=== PATIENT | male | born 1995 | race Hispanic/Latino ===

== ENCOUNTER 2018-02-17 20:26 | Emergency (ER) | payer SELFPAY ==
--- NOTE | 2018-02-17 22:00 | EDPHYS ---
Physician Documentation [facility] Name: Sudheer Duran Age: 22 yrs Sex: Male : 1995 Arrival Date: 02/17/2018 Time: 20:27 Bed 30 Private MD: ED Physician Chris Duron HPI: 02/17 21:50 This 22 yrs old Male presents to ER via Ambulatory with complaints of Allergic gs Reaction, Hives. 21:50 The patient presents with itching, rash. Onset: The symptoms/episode began/occurred 2 gs day(s) ago. Associated signs and symptoms: Pertinent negatives: abdominal pain, Altered mental status shortness of breath, swelling, Syncope vomiting. Possible causes: The patient has no known obvious cause for the symptoms. At home the patient or guardian has treated the symptoms with Benadryl. Severity of symptoms: At their worst the symptoms were moderate in the emergency department the symptoms are unchanged. The patient has experienced similar episodes in the past, a few times. Historical: - Allergies: 20:43 No Known Allergies; ea - Home Meds: 20:43 None [Active]; ea - PMHx: 20:43 None; ea - PSHx: 20:43 None; ea - Immunization history:: Adult Immunizations up to date. - Social history:: Smoking status: Patient uses tobacco products, denies chronic smoking, but will smoke occasionally. ROS: 21:50 Constitutional: Negative for fever. gs 21:50 All other systems are negative. Exam: 21:50 Head/Face: Normocephalic, atraumatic. Eyes: Pupils equal round and reactive to light, gs extra-ocular motions intact. Lids and lashes normal. Conjunctiva and sclera are non-icteric and not injected. Cornea within normal limits. Periorbital areas with no swelling, redness, or edema. ENT: Nares patent. No nasal discharge, no septal abnormalities noted. Tympanic membranes are normal and external auditory canals are clear. Oropharynx with no redness, swelling, or masses, exudates, or evidence of obstruction, uvula midline. Mucous membranes moist. Neck: Trachea midline, no thyromegaly or masses palpated, and no cervical lymphadenopathy. Supple, full range of motion without nuchal rigidity, or vertebral point tenderness. No Meningismus. Chest/axilla: Normal chest wall appearance and motion. Nontender with no deformity. No lesions are appreciated. Cardiovascular: Regular rate and rhythm with a normal S1 and S2. No gallops, murmurs, or rubs. Normal PMI, no JVD. No pulse deficits. Respiratory: Lungs have equal breath sounds bilaterally, clear to auscultation and percussion. No rales, rhonchi or wheezes noted. No increased work of breathing, no retractions or nasal flaring. Abdomen/GI: Soft, non-tender, with normal bowel sounds. No distension or tympany. No guarding or rebound. No evidence of tenderness throughout. Back: No spinal tenderness. No costovertebral tenderness. Full range of motion. MS/ Extremity: Pulses equal, no cyanosis. Neurovascular intact. Full, normal range of motion. Neuro: Awake and alert, GCS 15, oriented to person, place, time, and situation. Cranial nerves II-XII grossly intact. Motor strength 5/5 in all extremities. Sensory grossly intact. Cerebellar exam normal. Normal gait. 21:50 Constitutional: The patient appears alert, awake. 21:50 Skin: rash a moderate rash is noted, rash can be described as macular, papular, and is diffusely located. Vital Signs: 20:45 BP 106 / 68; Pulse 77; Resp 18; Temp 98(O); Pulse Ox 99% on R/A; Weight 86.18 kg; ea Height 5 ft. 10 in. (177.80 cm); Pain 0/10; 20:45 Body Mass Index 27.26 (86.18 kg, 177.80 cm) ea MDM: 21:43 Patient medically screened. 21:57 Differential diagnosis: contact dermatitis, scabies, hives. Data reviewed: vital signs, nurses notes. Response to treatment: the patient's symptoms have mildly improved after treatment, and as a result, I will discharge patient. Administered Medications: 22:12 Drug: predniSONE 40 mg Route: PO; kb1 22:12 Follow up: Response: Medication administered at discharge. kb1 Disposition: 02/17/18 21:59 Discharged to Home. Impression: Allergic contact dermatitis. - Condition is Stable. - Discharge Instructions: Contact Dermatitis, [id number]. - Prescriptions for Prednisone 20 mg Oral Tablet - take 1 tablet by ORAL route once daily for 5 days; 5 tablet. Zyrtec 10 mg Oral Tablet - take 1 tablet by ORAL route once daily As needed; 20 tablet. Triamcinolone Acetonide 0.1 % Topical Ointment - apply 1 application by TOPICAL route every 12 hours As needed; 1 tube. - Medication Reconciliation Form, Thank You Letter, Antibiotic Education, Prescription Opioid Use form. - Follow up: Private Physician; When: 2 - 3 days. Follow up: Sergio Pillai MD; When: 2 - 3 days; Reason: Re-evaluation by your physician. Signatures: Kylah Bettencourt RN RN ea Chris Duron MD MD Maribel De La Cruz RN RN kb1
--- NOTE | 2018-02-17 22:00 | ER ---
Nurse's Notes [facility] Name: Sudheer Duran Age: 22 yrs Sex: Male : 1995 Arrival Date: 02/17/2018 Time: 20:27 Bed 30 Private MD: Diagnosis: Allergic contact dermatitis Presentation: 02/17 20:40 Presenting complaint: Patient states: Reports that four days ago he used a new body ea wash and started breaking out in hives and a rash. Transition of care: patient was not received from another setting of care. Onset: The symptoms/episode began/occurred 4 day(s) ago. Anaphylaxis evaluation, no signs or symptoms of anaphylaxis were noted. Onset of symptoms was February 17, 2018. Care prior to arrival: Medication(s) given: Benadryl this AM. 20:40 Method Of Arrival: Ambulatory ea 20:40 Acuity: ALEXANDRE 4 ea Triage Assessment: 20:43 General: Appears in no apparent distress. Behavior is calm, cooperative, appropriate ea for age. Pain: Denies pain. Neuro: Level of Consciousness is awake, alert, obeys commands, Oriented to person, place, time. Cardiovascular: Patient's skin is warm and dry. Respiratory: Airway is patent Respiratory effort is even, unlabored, Respiratory pattern is regular, symmetrical. Derm: Rash noted that is itchy, red, on right arm, left arm, right leg and left leg. Historical: - Allergies: 20:43 No Known Allergies; ea - Home Meds: 20:43 None [Active]; ea - PMHx: 20:43 None; ea - PSHx: 20:43 None; ea - Immunization history:: Adult Immunizations up to date. - Social history:: Smoking status: Patient uses tobacco products, denies chronic smoking, but will smoke occasionally. Screenin:46 Abuse screen: Denies threats or abuse. Nutritional screening: No deficits noted. ea Tuberculosis screening: No symptoms or risk factors identified. Fall Risk None identified. Assessment: 22:13 General: Appears in no apparent distress. Behavior is calm, cooperative. Pain: Denies kb1 pain. Neuro: Level of Consciousness is awake, alert, obeys commands, Oriented to person, place, time, situation. Cardiovascular: Patient's skin is warm and dry. Respiratory: Respiratory effort is even, unlabored, Respiratory pattern is regular, symmetrical, Breath sounds are clear. GI: No signs and/or symptoms were reported involving the gastrointestinal system. : No signs and/or symptoms were reported regarding the genitourinary system. Derm: Rash noted that is itchy. Vital Signs: 20:45 BP 106 / 68; Pulse 77; Resp 18; Temp 98(O); Pulse Ox 99% on R/A; Weight 86.18 kg; ea Height 5 ft. 10 in. (177.80 cm); Pain 0/10; 20:45 Body Mass Index 27.26 (86.18 kg, 177.80 cm) ea ED Course: 20:27 Patient arrived in ED. am2 20:42 Triage completed. ea 20:53 Chris Duron MD is Attending Physician. 21:42 Maribel De La Cruz RN is Primary Nurse. kb1 21:59 Sergio Pillai MD is Referral Physician. gs 22:13 Patient has correct armband on for positive identification. Bed in low position. Call kb1 light in reach. 22:13 No provider procedures requiring assistance completed. Patient did not have IV access kb1 during this emergency room visit. Administered Medications: 22:12 Drug: predniSONE 40 mg Route: PO; kb1 22:12 Follow up: Response: Medication administered at discharge. kb1 Outcome: 21:59 Discharge ordered by . 22:14 Discharged to home ambulatory, with friend. kb1 22:14 Condition: stable 22:14 Discharge instructions given to patient, Instructed on discharge instructions, follow up and referral plans. medication usage, Demonstrated understanding of instructions, follow-up care, medications, Prescriptions given X 3. 22:15 Patient left the ED. kb1 Signatures: Guerda Pierce [facility] Kylah Bettencourt RN Chris Fitzpatrick ea, MD MD Maribel De La Cruz RN RN kb1
[2018-02-17 22:23] VITALS: BP 106/68; TEMP 98; O2SAT 99
[2018-02-17] MEDS ORDERED: predniSONE 20 MG TAB ONE (22:30)
== END 2018-02-17 22:15 | disposition home or self-care (01) ==
LOC: ER 20:26
DX: L23.9 Allergic contact dermatitis, unspecified cause
CPT/HCPCS: 99283; J7512

== ENCOUNTER 2018-02-23 19:00 | Emergency (ER) | payer SELFPAY ==
[2018-02-23 19:52] LABS: Absolute Lymphocytes (CBC) 2.8 K/uL (0.7-4.9); Absolute Monocytes 0.6 K/uL (0.1-1.3); Absolute Neutrophil 4.3 K/uL (1.8-8.0); Basophils % 0.8 % (0-1.3); Eosinophils % 10.9 % (0-4.4); MCH 29.7 pg (27.0-35.0); MCV 85.5 fL (80-100); MPV 9.2 fL (7.6-11.3); Monocytes % 6.4 % (3.3-12.3); RBC Red Blood Cell Count 5.38 M/uL (4.33-5.43)
--- NOTE | 2018-02-23 20:01 | ER ---
Nurse's Notes [facility] Name: Sudheer Duran Age: 22 yrs Sex: Male : 1995 Arrival Date: 02/23/2018 Time: 19:04 Bed 15 Private MD: Diagnosis: Allergic contact dermatitis Presentation: 02/23 19:08 Presenting complaint: Patient states: "Was here two weeks ago with an allergic reaction ao and was discharge home, but medications are not working and its getting worst and its hurting more" Rashes noted in abdomen and the back. Patient C/O itching and painful. Transition of care: patient was not received from another setting of care. Onset: The symptoms/episode began/occurred last month. Anaphylaxis evaluation, the patient reports or I have noted the following symptoms which indicate a significant risk of anaphylaxis: urticaria. Onset of symptoms is unknown. Care prior to arrival: None. 19:08 Method Of Arrival: Ambulatory ao 19:08 Acuity: ALEXANDRE 3 ao Triage Assessment: 19:16 General: Appears in no apparent distress. uncomfortable, Behavior is cooperative, ao appropriate for age. Pain: Complains of pain in Skin rashes. Historical: - Allergies: 19:13 No Known Allergies; ao - Home Meds: 19:13 prednisone 2.5 mg Oral tab 1 tab 2 times per day [Active]; triamcinolone acetonide ao 0.025 % Topical oint 2 times per day [Active]; - PMHx: 19:13 None; ao - PSHx: 19:13 None; ao - Immunization history:: Adult Immunizations up to date. - Social history:: Smoking status: Patient/guardian denies using tobacco, Patient uses alcohol, Patient/guardian denies using street drugs. Screenin:16 Abuse screen: Denies threats or abuse. Denies injuries from another. Nutritional bs1 screening: No deficits noted. Tuberculosis screening: No symptoms or risk factors identified. Fall Risk None identified. Assessment: 19:30 General: Appears in no apparent distress. uncomfortable, Behavior is cooperative, bs1 appropriate for age, anxious. 19:30 Pain: Complains of pain in general body Pain does not radiate. Pain currently is 5 out bs1 of 10 on a pain scale. Neuro: Level of Consciousness is awake, alert, obeys commands, Oriented to person, place, time, situation, Appropriate for age Field Liability Generalist are equal bilaterally Moves all extremities. Gait is steady, Speech is normal. Cardiovascular: Denies chest pain, shortness of breath, Heart tones S1 S2 present Capillary refill < 3 seconds Patient's skin is warm and dry. Respiratory: Airway is patent Trachea midline Respiratory effort is even, unlabored, Respiratory pattern is regular, symmetrical, Breath sounds are clear bilaterally. GI: No deficits noted. No signs and/or symptoms were reported involving the gastrointestinal system. Abdomen is flat, Bowel sounds present X 4 quads. : No deficits noted. No signs and/or symptoms were reported regarding the genitourinary system. EENT: No deficits noted. No signs and/or symptoms were reported regarding the EENT system. Derm: Rash noted that is urticaria, on general body, more to right hip and shoulders Reports increased itching, pain that is 5 out of 10 on a pain scale. tingling. Musculoskeletal: Circulation, motion, and sensation intact. Capillary refill < 3 seconds, Range of motion: intact in all extremities. 20:10 Reassessment: Patient appears in no apparent distress at this time. Patient and/or bs1 family updated on plan of care and expected duration. Pain level reassessed. Patient is alert, oriented x 3, equal unlabored respirations, skin warm/dry/pink. Vital Signs: 19:11 BP 102 / 84; Pulse 88; Resp 18; Temp 98.7(O); Pulse Ox 98% on R/A; Weight 86.18 kg; ao Height 5 ft. 10 in. (177.80 cm) (R); Pain 5/10; 20:11 BP 110 / 69; Pulse 78; Resp 16; Pulse Ox 100% on R/A; Pain 4/10; bs1 19:11 Body Mass Index 27.26 (86.18 kg, 177.80 cm) ao ED Course: 19:04 Patient arrived in ED. al2 19:11 Triage completed. ao 19:11 Arm band placed on right wrist. Patient placed in an exam room, on a stretcher, Patient ao notified of wait time. 19:14 Wendy Jacobson FNP-C is PHCP. kb 19:14 Peña Baker MD is Attending Physician. kb 19:36 Lisandra Han RN is Primary Nurse. bs1 20:16 Patient has correct armband on for positive identification. Placed in gown. Bed in low bs1 position. Call light in reach. Side rails up X 1. 20:17 No provider procedures requiring assistance completed. Patient did not have IV access bs1 during this emergency room visit. Administered Medications: No medications were administered Outcome: 20:01 Discharge ordered by . niraj 20:17 Discharged to home ambulatory. bs1 20:17 Condition: stable 20:17 Discharge instructions given to patient, Instructed on discharge instructions, follow up and referral plans. medication usage, Demonstrated understanding of instructions, follow-up care, medications, Prescriptions given X 2. 20:17 Patient left the ED. bs1 Signatures: Wendy Jacobson FNP-C FNP-Shelton Hines, RN RN Lisandra Guidry RN RN bs1 Malika Estrella Corrections: (The following items were deleted from the chart) 19:16 19:08 Presenting complaint: Patient states: "Was here week ago with an allergic ao reaction and was discharge home, but medications are not working and its getting worst and its hurting more" Rashes noted in abdomen and the back. Patient C/O itching and painful ao
--- NOTE | 2018-02-23 20:01 | EDPHYS ---
Physician Documentation [facility] Name: Sudheer Duran Age: 22 yrs Sex: Male : 1995 Arrival Date: 02/23/2018 Time: 19:04 Bed 15 Private MD: ED Physician Peña Baker HPI: 02/23 19:27 This 22 yrs old Male presents to ER via Ambulatory with complaints of Allergic kb Reaction. 19:27 The patient presents with itching, rash, that is diffuse. Onset: The symptoms/episode kb began/occurred 2 week(s) ago. Associated signs and symptoms: Pertinent positives: rash. Possible causes: thought it was due to body wash, but stopped using it and still has rash. At home the patient or guardian has treated the symptoms with Benadryl, steroids. Severity of symptoms: At their worst the symptoms were moderate in the emergency department the symptoms are unchanged. The patient has experienced a previous episode. The patient has been recently seen at the [facility] Emergency Department, this week. Pt states he was seen for an allergic reaction last week and given medication for it. Completed meds, but still has rash. Pain and itching getting worse. . Historical: - Allergies: 19:13 No Known Allergies; ao - Home Meds: 19:13 prednisone 2.5 mg Oral tab 1 tab 2 times per day [Active]; triamcinolone acetonide ao 0.025 % Topical oint 2 times per day [Active]; - PMHx: 19:13 None; ao - PSHx: 19:13 None; ao - Immunization history:: Adult Immunizations up to date. - Social history:: Smoking status: Patient/guardian denies using tobacco, Patient uses alcohol, Patient/guardian denies using street drugs. ROS: 19:24 Constitutional: Negative for fever, chills, and weight loss, Cardiovascular: Negative kb for chest pain, palpitations, and edema, Respiratory: Negative for shortness of breath, cough, wheezing, and pleuritic chest pain, Abdomen/GI: Negative for abdominal pain, nausea, vomiting, diarrhea, and constipation, MS/Extremity: Negative for injury and deformity, Neuro: Negative for headache, weakness, numbness, tingling, and seizure. 19:24 Skin: Positive for rash, diffusely. Exam: 19:24 Constitutional: This is a well developed, well nourished patient who is awake, alert, kb and in no acute distress. Head/Face: Normocephalic, atraumatic. Chest/axilla: Normal chest wall appearance and motion. Nontender with no deformity. No lesions are appreciated. Cardiovascular: Regular rate and rhythm with a normal S1 and S2. No gallops, murmurs, or rubs. Normal PMI, no JVD. No pulse deficits. Respiratory: Lungs have equal breath sounds bilaterally, clear to auscultation and percussion. No rales, rhonchi or wheezes noted. No increased work of breathing, no retractions or nasal flaring. Abdomen/GI: Soft, non-tender, with normal bowel sounds. No distension or tympany. No guarding or rebound. No evidence of tenderness throughout. MS/ Extremity: Pulses equal, no cyanosis. Neurovascular intact. Full, normal range of motion. Neuro: Awake and alert, GCS 15, oriented to person, place, time, and situation. Cranial nerves II-XII grossly intact. Motor strength 5/5 in all extremities. Sensory grossly intact. Cerebellar exam normal. Normal gait. 19:24 Skin: rash can be described as erythematous, macular, papular, and is diffusely located. Vital Signs: 19:11 BP 102 / 84; Pulse 88; Resp 18; Temp 98.7(O); Pulse Ox 98% on R/A; Weight 86.18 kg; ao Height 5 ft. 10 in. (177.80 cm) (R); Pain 5/10; 20:11 BP 110 / 69; Pulse 78; Resp 16; Pulse Ox 100% on R/A; Pain 4/10; bs1 19:11 Body Mass Index 27.26 (86.18 kg, 177.80 cm) ao MDM: 19:14 Patient medically screened. kb 19:24 Data reviewed: vital signs, nurses notes. Data interpreted: Pulse oximetry: on room air kb is 98 %. Interpretation: normal. 20:00 Counseling: I had a detailed discussion with the patient and/or guardian regarding: the kb historical points, exam findings, and any diagnostic results supporting the discharge/admit diagnosis, lab results, the need for outpatient follow up, a hourly sales staff, to return to the emergency department if symptoms worsen or persist or if there are any questions or concerns that arise at home. 02/23 19:21 Order name: CBC with Diff; Complete Time: 19:57 kb Administered Medications: No medications were administered Disposition: 02/24 02:51 Co-signature as Attending Physician, Peña Baker MD. rn Disposition: 02/23/18 20:01 Discharged to Home. Impression: Allergic contact dermatitis. - Condition is Stable. - Discharge Instructions: Rash, [id number]-Laox, Contact Dermatitis, [id number]. - Prescriptions for Pepcid 20 mg Oral Tablet - take 1 tablet by ORAL route every 12 hours for 5 days; 10 tablet. Prednisone 20 mg Oral Tablet - take 3 tablets by ORAL route once daily for 4 days Take 3 tablets by mouth once daily for 4 days, then take 2 tablets by mouth once daily for 4 days, then take 1 tablet by mouth once daily for 4 days.; 24 tablet. - Medication Reconciliation Form, Thank You Letter, Antibiotic Education, Prescription Opioid Use form. - Follow up: Private Physician; When: 2 - 3 days; Reason: Recheck today's complaints, Continuance of care, Re-evaluation by your physician. Follow up: Emergency Department; When: As needed; Reason: Worsening of condition. Signatures: Dispatcher [employer] EDMS Wendy Jacobson, E [employer]CE RETAILER-C E [employer] RETAILER-Ckb Peña Baker MD MD rn Ortiz, Alex RN Lisandra Cornelius RN RN bs1
[2018-02-23 20:23] VITALS: BP 102/84; TEMP 98.7; O2SAT 98
== END 2018-02-23 20:17 | disposition home or self-care (01) ==
LOC: ER 19:00
DX: L23.9 Allergic contact dermatitis, unspecified cause
CPT/HCPCS: 36415; 85025; 99282

== ENCOUNTER 2019-02-07 18:14 | Emergency (ER) | payer SELFPAY ==
--- NOTE | 2019-02-07 19:48 | EDPHYS ---
Physician Documentation [facility] Name: Sudheer Duran Age: 23 yrs Sex: Male : 1995 Arrival Date: 02/07/2019 Time: 18:17 Bed 20 Private MD: ED Physician Peña Baker HPI: 02/07 19:29 This 23 yrs old Male presents to ER via Ambulatory with complaints of Fever. snw 19:29 The patient reports fever, that was measured at 102 degrees Fahrenheit. Onset: The snw symptoms/episode began/occurred suddenly, 2 day(s) ago, and became persistent. Associated signs and symptoms: Pertinent positives: cough, decreased appetite, myalgias, sinus congestion, sore throat. Severity of symptoms: At their worst the symptoms were moderate in the emergency department the symptoms are unchanged. The patient has not experienced similar symptoms in the past. It is unknown whether or not the patient has recently seen a physician. Spouse with similar s/s. Historical: - Allergies: 18:39 No Known Allergies; hb - PMHx: 18:39 None; hb - PSHx: 18:39 None; hb - Immunization history:: Adult Immunizations up to date. - Social history:: Smoking status: Patient/guardian denies using tobacco. - Ebola Screening: : No symptoms or risks identified at this time. ROS: 19:29 Eyes: Negative for injury, pain, redness, and discharge, ENT: Negative for injury, snw pain, and discharge, Neck: Negative for injury, pain, and swelling, Cardiovascular: Negative for chest pain, palpitations, and edema, Respiratory: Negative for shortness of breath, cough, wheezing, and pleuritic chest pain, Abdomen/GI: Negative for abdominal pain, nausea, vomiting, diarrhea, and constipation, Back: Negative for injury and pain, : Negative for injury, bleeding, discharge, and swelling, MS/Extremity: Negative for injury and deformity, Skin: Negative for injury, rash, and discoloration, Neuro: Negative for headache, weakness, numbness, tingling, and seizure. 19:29 Constitutional: Positive for body aches, chills, fatigue, fever, malaise, poor PO intake. Exam: 19:29 Head/Face: Normocephalic, atraumatic. Eyes: Pupils equal round and reactive to light, snw extra-ocular motions intact. Lids and lashes normal. Conjunctiva and sclera are non-icteric and not injected. Cornea within normal limits. Periorbital areas with no swelling, redness, or edema. ENT: Nares patent. No nasal discharge, no septal abnormalities noted. Tympanic membranes are normal and external auditory canals are clear. Oropharynx with no redness, swelling, or masses, exudates, or evidence of obstruction, uvula midline. Mucous membranes moist. Neck: Trachea midline, no thyromegaly or masses palpated, and no cervical lymphadenopathy. Supple, full range of motion without nuchal rigidity, or vertebral point tenderness. No Meningismus. Chest/axilla: Normal chest wall appearance and motion. Nontender with no deformity. No lesions are appreciated. 19:29 Respiratory: Lungs have equal breath sounds bilaterally, clear to auscultation and percussion. No rales, rhonchi or wheezes noted. No increased work of breathing, no retractions or nasal flaring. Abdomen/GI: Soft, non-tender, with normal bowel sounds. No distension or tympany. No guarding or rebound. No evidence of tenderness throughout. Back: No spinal tenderness. No costovertebral tenderness. Full range of motion. Skin: Warm, dry with normal turgor. Normal color with no rashes, no lesions, and no evidence of cellulitis. MS/ Extremity: Pulses equal, no cyanosis. Neurovascular intact. Full, normal range of motion. Neuro: Awake and alert, GCS 15, oriented to person, place, time, and situation. Cranial nerves II-XII grossly intact. Motor strength 5/5 in all extremities. Sensory grossly intact. Cerebellar exam normal. Normal gait. Psych: Awake, alert, with orientation to person, place and time. Behavior, mood, and affect are within normal limits. 19:29 Constitutional: The patient appears in no acute distress, alert, awake, febrile, uncomfortable. 19:29 Cardiovascular: Rate: tachycardic, Rhythm: regular, Heart sounds: normal. Vital Signs: 18:38 BP 148 / 87; Pulse 123; Resp 16; Temp 100.3; Pulse Ox 99% on R/A; Pain 5/10; hb 20:16 BP 142 / 79; Pulse 112; Resp 20; Temp 99.4(O); Pulse Ox 99% on R/A; Pain 0/10; ed1 MDM: 19:03 Patient medically screened. snw 19:51 Data reviewed: vital signs, nurses notes. Data interpreted: Pulse oximetry: on room air snw is 99 %. Interpretation: normal. Counseling: I had a detailed discussion with the patient and/or guardian regarding: the historical points, exam findings, and any diagnostic results supporting the discharge/admit diagnosis, the presence of at least one elevated blood pressure reading (>120/80) during this emergency department visit, the need for outpatient follow up, to return to the emergency department if symptoms worsen or persist or if there are any questions or concerns that arise at home. Special discussion: I have referred the patient to see his PCP for further evaluation of high blood pressure. Based on the history and exam findings, there is no indication for further emergent testing or inpatient evaluation. I discussed with the patient/guardian the need to see the primary care provider for further evaluation of the symptoms. 02/07 18:57 Order name: Flu; Complete Time: 19:46 tw2 Administered Medications: 20:15 Drug: Tamiflu 75 mg Route: PO; ed1 20:15 Follow up: Response: Medication administered at discharge. ed1 20:16 Drug: Zofran 4 mg Route: PO; ed1 20:16 Follow up: Response: Medication administered at discharge. ed1 Disposition: 02/07/19 19:48 Discharged to Home. Impression: Influenza due to identified novel influenza A virus. - Condition is Stable. - Discharge Instructions: Fever, Adult, Hypertension, Influenza, Adult, Cough, Adult, Rehydration, Adult. - Prescriptions for Tamiflu 75 mg Oral Capsule - take 1 capsule by ORAL route every 12 hours for 5 days; 10 capsule. Zofran 4 mg Oral Tablet - take 1 tablet by ORAL route every 12 hours As needed; 20 tablet. - Work release form, Medication Reconciliation Form, Thank You Letter, Antibiotic Education, Prescription Opioid Use form. - Follow up: Private Physician; When: 2 - 3 days; Reason: Recheck today's complaints, Continuance of care, Re-evaluation by your physician. Follow up: Emergency Department; When: As needed; Reason: Worsening of condition. Addendum: 02/11/2019 07:35 Co-signature as Attending Physician, Peña Baker MD. r n Signatures: Dispatcher [employer] [facility] GregoryMarianne velasco, REPRESENTATIVE PERSONAL SERVICE-C REPRESENTATIVE PERSONAL SERVICE-Csnw Peña Baker MD MD rn Vianney Urbano RN RN ed1 Neelam Viveros, JASON RN Corrections: (The following items were deleted from the chart) 02/07 20:17 19:48 02/07/2019 19:48 Discharged to Home. Impression: Influenza due to identified ed1 novel influenza A virus. Condition is Stable. Forms are Medication Reconciliation Form, Thank You Letter, Antibiotic Education, Prescription Opioid Use. Follow up: Private Physician; When: 2 - 3 days; Reason: Recheck today's complaints, Continuance of care, Re-evaluation by your physician. Follow up: Emergency Department; When: As needed; Reason: Worsening of condition. snw
--- NOTE | 2019-02-07 19:48 | ER ---
Nurse's Notes [facility] Name: Sudheer Duran Age: 23 yrs Sex: Male : 1995 Arrival Date: 02/07/2019 Time: 18:17 Bed 20 Private MD: Diagnosis: Influenza due to identified novel influenza A virus Presentation: 02/07 18:39 Presenting complaint: Cough, body aches, fever, and nausea z 3 days. Transition of hb care: patient was not received from another setting of care. Onset of symptoms was February 05, 2019. Risk Assessment: Do you want to hurt yourself or someone else? Patient reports no desire to harm self or others. Care prior to arrival: None. 18:39 Method Of Arrival: Ambulatory hb 18:39 Acuity: ALEXANDRE 4 hb 18:44 Initial Sepsis Screen: Does the patient meet any 2 criteria? HR > 90 bpm. Does the tw2 patient have a suspected source of infection? Yes: Productive cough/pneumonia. Historical: - Allergies: 18:39 No Known Allergies; hb - PMHx: 18:39 None; hb - PSHx: 18:39 None; hb - Immunization history:: Adult Immunizations up to date. - Social history:: Smoking status: Patient/guardian denies using tobacco. - Ebola Screening: : No symptoms or risks identified at this time. Screenin:44 Abuse screen: Denies threats or abuse. Nutritional screening: No deficits noted. tw2 Tuberculosis screening: No symptoms or risk factors identified. Fall Risk None identified. Assessment: 18:46 General: Appears in no apparent distress. Behavior is calm, cooperative, appropriate tw2 for age. Pain: Denies pain. Neuro: Level of Consciousness is awake, alert, obeys commands, Oriented to person, place, time, situation. Cardiovascular: Patient's skin is warm and dry. Respiratory: Reports cough that is Airway is patent Respiratory effort is even, unlabored, Respiratory pattern is regular, symmetrical. GI: No signs and/or symptoms were reported involving the gastrointestinal system. : No signs and/or symptoms were reported regarding the genitourinary system. EENT: Reports nasal congestion nasal discharge. Musculoskeletal: Circulation, motion, and sensation intact. Range of motion: intact in all extremities. 20:16 Reassessment: Patient appears in no apparent distress at this time. Patient and/or ed1 family updated on plan of care and expected duration. Pain level reassessed. Patient is alert, oriented x 3, equal unlabored respirations, skin warm/dry/pink. Patient denies pain at this time. Vital Signs: 18:38 BP 148 / 87; Pulse 123; Resp 16; Temp 100.3; Pulse Ox 99% on R/A; Pain 5/10; hb 20:16 BP 142 / 79; Pulse 112; Resp 20; Temp 99.4(O); Pulse Ox 99% on R/A; Pain 0/10; ed1 ED Course: 18:17 Patient arrived in ED. as 18:22 [facility]C [facility] snw 18:22 Peña Baker MD is Attending Physician. snw 18:40 Triage completed. hb 18:40 Arm band placed on right wrist. hb 18:44 Bed in low position. Call light in reach. Pulse ox on. NIBP on. tw2 19:00 Report given to JASNO Faith. tw2 19:04 Vianney Urbano RN is Primary Nurse. ed1 20:16 No provider procedures requiring assistance completed. Patient did not have IV access ed1 during this emergency room visit. Administered Medications: 20:15 Drug: Tamiflu 75 mg Route: PO; ed1 20:15 Follow up: Response: Medication administered at discharge. ed1 20:16 Drug: Zofran 4 mg Route: PO; ed1 20:16 Follow up: Response: Medication administered at discharge. ed1 Outcome: 19:48 Discharge ordered by . snw 20:16 Discharged to home ambulatory. ed1 20:16 Condition: good 20:16 Discharge instructions given to patient, Instructed on discharge instructions, follow up and referral plans. medication usage, Demonstrated understanding of instructions, follow-up care, medications, Prescriptions given X 2. 20:17 Patient left the ED. ed1 Signatures: Marianne Jenkins FNP-C VICE PRESIDENT BIOSTATISTICS-Anaya Madden as Vianney Urbano, JASON RN ed1 Neelam Viveros RN RN Leida Hugo RN RN tw2
[2019-02-07] MEDS ORDERED: ONDANSETRON 4 MG (ODT) TAB ONE (20:19)
[2019-02-07] MEDS ORDERED: OSELTAMIVIR 75 MG CAP ONE (20:19)
[2019-02-07 20:29] VITALS: O2SAT 99
[2019-02-07 20:30] VITALS: BP 142/79; TEMP 99.4
== END 2019-02-07 20:17 | disposition home or self-care (01) ==
LOC: ER 18:14
DX: J11.1 Influenza due to unidentified influenza virus with other respiratory manifestations (principal)
CPT/HCPCS: 87804; 99283

== ENCOUNTER 2019-05-13 11:12 | Emergency (ER) | payer BC, SELFPAY ==
[2019-05-13 12:03] LABS: Urine Mucus 1+ /HPF (NONE SEEN)
[2019-05-13 12:04] LABS: Urine Bacteria <20 /HPF (NONE SEEN); Urine Culture Reflex Order NOT NEEDED; Urine RBC <5 /HPF (NONE SEEN)
[2019-05-13 12:05] LABS: Urine Specific Gravity 1.025 (1.005-1.030)
[2019-05-13 12:06] LABS: Urine Blood TRACE (NEG); Urine Glucose NEGATIVE (NEG); Urine Protein 1+ (NEG)
[2019-05-13 12:42] LABS: Absolute Lymphocytes (CBC) 1.4 K/uL (0.7-4.9); Absolute Monocytes 0.5 K/uL (0.1-1.3); Absolute Neutrophil 6.9 K/uL (1.8-8.0); Basophils % 0.4 % (0-1.3); Eosinophils % 0.3 % (0-4.4); Hematocrit 53.2 % (39.6-49.0); Lymphocytes % 15.4 % (15.3-44.8); MPV 9.5 fL (7.6-11.3); Monocytes % 5.6 % (3.3-12.3)
[2019-05-13 12:57] LABS: Potassium 3.6 mmol/L (3.5-5.1)
--- NOTE | 2019-05-13 13:05 | RAD REPORT ---
EXAM DESCRIPTION: CTAbdomen Pelvis W Contrast - 05/13/2019 12:57 pm CLINICAL HISTORY: Abdominal pain. ABD PAIN COMPARISON: CT ABD PELVIS W CONTRAST dated 08/31/2009 TECHNIQUE: Biphasic CT imaging of the abdomen and pelvis was performed with 100 ml non-ionic IV cont rast. All CT scans are performed using dose optimization technique as appropriate and may include automated exposure control or mA/KV adjustment according to patient size. FINDINGS: The lung bases are clear. The liver demonstrates diffuse fatty infiltration. The spleen, pancreas, adrenal glands and kidneys a re within normal limits. No bowel obstruction, free air, free fluid or abscess. The appendix is normal. No evidence of signi ficant lymphadenopathy. No suspicious bony findings. IMPRESSION: No acute intra-abdominal or pelvic finding. Diffuse fatty liver.
--- NOTE | 2019-05-13 13:49 | EDPHYS ---
Physician Documentation [facility] Name: Sudheer Duran Age: 24 yrs Sex: Male : 1995 Arrival Date: 05/13/2019 Time: 11:17 Bed 20 Private MD: Unknown, Unknown ED Physician Chris Duron HPI: 05/13 13:05 This 24 yrs old Male presents to ER via Ambulatory with complaints of Possible jr8 Kidney Infection. 13:05 The patient presents with abdominal pain in the lower abdomen. Onset: The jr8 symptoms/episode began/occurred acutely, yesterday. The symptoms do not radiate. Associated signs and symptoms: Pertinent positives: frequency. The symptoms are described as burning, dull. Modifying factors: The symptoms are alleviated by nothing, the symptoms are aggravated by nothing. Severity of pain: At its worst the pain was mild in the emergency department the pain is unchanged. The patient has not experienced similar symptoms in the past. The patient has not recently seen a physician. Stated that he was recently seen and worked up to make sure he did not have any STD's. Stated that everything came back normal. Two days ago started with diarrhea which resolved. Now having lower abdominal burning and discomfort with frequency. Denies burning or pain with urination . Historical: - Allergies: 11:41 No Known Allergies; em - Home Meds: 11:41 None [Active]; em - PMHx: 11:41 None; em - PSHx: 11:41 None; em - Immunization history:: Adult Immunizations up to date. - Social history:: Smoking status: Patient uses tobacco products, denies chronic smoking, but will smoke occasionally. - Ebola Screening: : Patient negative for fever greater than or equal to 101.5 degrees Fahrenheit, and additional compatible Ebola Virus Disease symptoms Patient denies exposure to infectious person Patient denies travel to an Ebola-affected area in the 21 days before illness onset No symptoms or risks identified at this time. ROS: 13:05 Eyes: Negative for injury, pain, redness, and discharge, ENT: Negative for injury, jr8 pain, and discharge, Neck: Negative for injury, pain, and swelling, Cardiovascular: Negative for chest pain, palpitations, and edema, Respiratory: Negative for shortness of breath, cough, wheezing, and pleuritic chest pain, Back: Negative for injury and pain, MS/Extremity: Negative for injury and deformity, Skin: Negative for injury, rash, and discoloration, Neuro: Negative for headache, weakness, numbness, tingling, and seizure. 13:05 Abdomen/GI: Positive for abdominal pain, diarrhea, Negative for nausea and vomiting, constipation, abdominal cramps, abdominal distension, anorexia, dysphagia, hematemesis, black/tarry stool, rectal pain, rectal bleeding, bowel incontinence, flatulence. 13:05 : Positive for urinary frequency, Negative for small amounts, hematuria, flank pain, burning with urination, difficulty urinating, bladder incontinence, foul smelling urine, penile discharge, penile pain, testicular pain Exam: 13:05 Eyes: Pupils equal round and reactive to light, extra-ocular motions intact. Lids and jr8 lashes normal. Conjunctiva and sclera are non-icteric and not injected. Cornea within normal limits. Periorbital areas with no swelling, redness, or edema. ENT: Nares patent. No nasal discharge, no septal abnormalities noted. Tympanic membranes are normal and external auditory canals are clear. Oropharynx with no redness, swelling, or masses, exudates, or evidence of obstruction, uvula midline. Mucous membranes moist. Neck: Trachea midline, no thyromegaly or masses palpated, and no cervical lymphadenopathy. Supple, full range of motion without nuchal rigidity, or vertebral point tenderness. No Meningismus. Cardiovascular: Regular rate and rhythm with a normal S1 and S2. No gallops, murmurs, or rubs. Normal PMI, no JVD. No pulse deficits. Respiratory: Lungs have equal breath sounds bilaterally, clear to auscultation and percussion. No rales, rhonchi or wheezes noted. No increased work of breathing, no retractions or nasal flaring. Back: No spinal tenderness. No costovertebral tenderness. Full range of motion. Skin: Warm, dry with normal turgor. Normal color with no rashes, no lesions, and no evidence of cellulitis. MS/ Extremity: Pulses equal, no cyanosis. Neurovascular intact. Full, normal range of motion. Neuro: Awake and alert, GCS 15, oriented to person, place, time, and situation. Cranial nerves II-XII grossly intact. Motor strength 5/5 in all extremities. Sensory grossly intact. Cerebellar exam normal. Normal gait. 13:05 Abdomen/GI: Inspection: abdomen appears normal, Bowel sounds: active, all quadrants, Palpation: soft, in all quadrants, mild abdominal tenderness, in the suprapubic area, right lower quadrant and left lower quadrant, mass, is not appreciated, rebound tenderness, is not appreciated, voluntary guarding, is not appreciated, involuntary guarding, is not appreciated, no appreciated organomegaly, Indicators: McBurney's point is not tender, Sarmiento's sign is negative, Rovsing's sign is negative, Liver: tenderness, is not appreciated. Vital Signs: 11:41 BP 137 / 100; Pulse 98; Resp 18; Temp 98.6(O); Pulse Ox 98% on R/A; Weight 92.99 kg; em Height 5 ft. 9 in. (175.26 cm); Pain 3/10; 12:36 BP 147 / 99; Pulse 96; Resp 18; Pulse Ox 97% on R/A; em 14:00 BP 133 / 83; Pulse 98; Resp 16; Pulse Ox 99% on R/A; em 11:41 Body Mass Index 30.27 (92.99 kg, 175.26 cm) em MDM: 11:36 Patient medically screened. jr8 13:46 Differential diagnosis: appendicitis, bowel obstruction, GI Bleed, Irritable bowel jr8 syndrome, non-specific abd pain, Prostatitis, Pyelonephritis, Testicular Torsion, Ureterolithiasis, urinary tract infection, colitis. Data reviewed: vital signs, nurses notes, lab test result(s), radiologic studies, CT scan. Data interpreted: Pulse oximetry: on room air is 97 %. Interpretation: normal. Counseling: I had a detailed discussion with the patient and/or guardian regarding: the historical points, exam findings, and any diagnostic results supporting the discharge/admit diagnosis, lab results, radiology results, the need for outpatient follow up, a family practitioner, to return to the emergency department if symptoms worsen or persist or if there are any questions or concerns that arise at home. ED course: Discussed with patient that there were no acute findings on labs or CT. Mild dehydration based on ketone level in urine. Recommended lots of fluids for next couple of days. If worse to come back. Otherwise no indication for admission at this time. Patient good with plan . 05/13 11:47 Order name: Urine Microscopic Only; Complete Time: 12:06 iw 05/13 11:49 Order name: Urine Dipstick--Ancillary (enter results); Complete Time: 12:24 ms 05/13 11:55 Order name: Basic Metabolic Panel; Complete Time: 13:02 8 05/13 11:55 Order name: CBC with Diff; Complete Time: 13:02 8 05/13 11:55 Order name: Creatinine for Radiology; Complete Time: 13:02 8 05/13 12:25 Order name: CT Abd/Pelvis - IV Contrast Only; Complete Time: 13:09 8 05/13 11:55 Order name: IV Saline Lock; Complete Time: 12:34 8 05/13 11:55 Order name: Labs collected and sent; Complete Time: 12:34 jr8 Administered Medications: No medications were administered Disposition: 05/14 12:48 Co-signature as Attending Physician, Chris Duron MD. Disposition: 05/13/19 13:48 Discharged to Home. Impression: Abdominal and pelvic pain. - Condition is Stable. - Discharge Instructions: Abdominal Pain, Adult. - Medication Reconciliation Form, Thank You Letter, Antibiotic Education, Prescription Opioid Use form. - Follow up: Private Physician; When: 1 - 2 days; Reason: Recheck today's complaints, Continuance of care, Re-evaluation by your physician. - Problem is new. - Symptoms have improved. Signatures: Dispatcher [employer] Damien Marshall, SOUND TRUCK OPERATOR SOUND TRUCK OPERATOR Renu Whitehead RN RN iw Josh Brunson, PA PA jr8 Chris Duron MD MD Corrections: (The following items were deleted from the chart) 05/13 14:27 13:48 05/13/2019 13:48 Discharged to Home. Impression: Abdominal and pelvic pain. iw Condition is Stable. Forms are Medication Reconciliation Form, Thank You Letter, Antibiotic Education, Prescription Opioid Use. Follow up: Private Physician; When: 1 - 2 days; Reason: Recheck today's complaints, Continuance of care, Re-evaluation by your physician. Problem is new. Symptoms have improved. jr8
--- NOTE | 2019-05-13 13:49 | ER ---
Nurse's Notes [facility] Name: Sudheer Duran Age: 24 yrs Sex: Male : 1995 Arrival Date: 05/13/2019 Time: 11:17 Bed 20 Private MD: Unknown, Unknown Diagnosis: Abdominal and pelvic pain Presentation: 05/13 11:37 Presenting complaint: Patient states: reports burning and frequency with urination, em also reports urine is cloudy, reports lower abd pain, denies blood in urine, denies N/V/D or fever. Transition of care: patient was not received from another setting of care. Onset of symptoms was May 13, 2019. Risk Assessment: Do you want to hurt yourself or someone else? Patient reports no desire to harm self or others. Initial Sepsis Screen: Does the patient meet any 2 criteria? No. Patient's initial sepsis screen is negative. Does the patient have a suspected source of infection? Yes: Dysuria/Frequency/Urgency/UTI. Care prior to arrival: None. 11:37 Method Of Arrival: Ambulatory em 11:41 Acuity: ALEXANDRE 3 iw Triage Assessment: 11:41 General: Appears in no apparent distress. comfortable, Behavior is calm, cooperative. em Pain: Complains of pain in right lower quadrant and left lower quadrant. Historical: - Allergies: 11:41 No Known Allergies; em - Home Meds: 11:41 None [Active]; em - PMHx: 11:41 None; em - PSHx: 11:41 None; em - Immunization history:: Adult Immunizations up to date. - Social history:: Smoking status: Patient uses tobacco products, denies chronic smoking, but will smoke occasionally. - Ebola Screening: : Patient negative for fever greater than or equal to 101.5 degrees Fahrenheit, and additional compatible Ebola Virus Disease symptoms Patient denies exposure to infectious person Patient denies travel to an Ebola-affected area in the 21 days before illness onset No symptoms or risks identified at this time. Screenin:41 Abuse screen: Denies threats or abuse. Nutritional screening: No deficits noted. em Tuberculosis screening: No symptoms or risk factors identified. Fall Risk None identified. Assessment: 11:41 General: Appears in no apparent distress. comfortable, Behavior is calm, cooperative, em Denies fever. Pain: Complains of pain in left lower quadrant and right lower quadrant Pain currently is 3 out of 10 on a pain scale. Neuro: Level of Consciousness is awake, alert, obeys commands, Oriented to person, place, time, situation. Cardiovascular: Capillary refill < 3 seconds Patient's skin is warm and dry. Respiratory: Airway is patent Respiratory effort is even, unlabored, Respiratory pattern is regular, symmetrical. GI: Abdomen is flat, Bowel sounds present X 4 quads. Abd is soft X 4 quads Abdomen is tender to palpation in right lower quadrant and left lower quadrant Patient currently denies diarrhea, nausea, vomiting. : Urine is clear, Reports burning with urination, urinary frequency, Denies discharge. Derm: Skin is intact, is healthy with good turgor, Skin is pink, warm \T\ dry. Musculoskeletal: Capillary refill < 3 seconds, Range of motion: intact in all extremities. 11:55 Reassessment: Patient appears in no apparent distress at this time. I agree with above iw assessment by Damien Vargas LVN. 12:39 Reassessment: Patient appears in no apparent distress at this time. Patient and/or em family updated on plan of care and expected duration. Pain level reassessed. Patient is alert, oriented x 3, equal unlabored respirations, skin warm/dry/pink. 14:00 Reassessment: Patient appears in no apparent distress at this time. Patient and/or em family updated on plan of care and expected duration. Pain level reassessed. Patient is alert, oriented x 3, equal unlabored respirations, skin warm/dry/pink. Vital Signs: 11:41 BP 137 / 100; Pulse 98; Resp 18; Temp 98.6(O); Pulse Ox 98% on R/A; Weight 92.99 kg; em Height 5 ft. 9 in. (175.26 cm); Pain 3/10; 12:36 BP 147 / 99; Pulse 96; Resp 18; Pulse Ox 97% on R/A; em 14:00 BP 133 / 83; Pulse 98; Resp 16; Pulse Ox 99% on R/A; em 11:41 Body Mass Index 30.27 (92.99 kg, 175.26 cm) em ED Course: 11:17 Patient arrived in ED. ag5 11:18 Unknown, Unknown is Private Physician. ag5 11:31 Damien Vargas LVN is Primary Nurse. em 11:31 Josh Brunson PA is PHCP. jr8 11:31 Chris Duron MD is Attending Physician. jr8 11:41 Triage completed. iw 11:41 Arm band placed on. em 11:41 Bed in low position. Call light in reach. Pulse ox on. NIBP on. em 12:30 Initial lab(s) drawn, by me, sent to lab. Inserted saline lock: 22 gauge in right em antecubital area, using aseptic technique. Blood collected. 12:57 CT completed. Patient tolerated procedure well. Patient moved back from CT. mw3 12:59 CT Abd/Pelvis - IV Contrast Only In Process Unspecified. EDMS 14:27 No provider procedures requiring assistance completed. IV discontinued, intact, em bleeding controlled, No redness/swelling at site. Pressure dressing applied. Administered Medications: No medications were administered Outcome: 13:48 Discharge ordered by . jr8 14:27 Discharged to home ambulatory. em 14:27 Condition: good 14:27 Discharge instructions given to patient, Instructed on discharge instructions, follow up and referral plans. Demonstrated understanding of instructions, follow-up care. 14:27 Patient left the ED. iw Signatures: Dispatcher [employer] EDMS Damien Vargas, SMALL BRAKE FORM OPERATOR SMALL BRAKE FORM OPERATOR em Renu Radford, JASON RN iw Josh Brunson PA PA jr8 Janina Herron mw3 Leandro Becker ag5
[2019-05-13 14:33] VITALS: TEMP 98.6
[2019-05-13 14:35] VITALS: BP 133/83; O2SAT 99
== END 2019-05-13 14:27 | disposition home or self-care (01) ==
LOC: ER 11:12
DX: R10.30 Lower abdominal pain, unspecified (principal); R10.2 Pelvic and perineal pain; Z72.0 Tobacco use
CPT/HCPCS: 36415; 74177; 80048; 81003; 81015; 85025; 99284; Q9967

== ENCOUNTER 2020-03-27 08:30 | Emergency (ER) | payer BC ==
[2020-03-27 09:09] LABS: Absolute Lymphocytes (CBC) 2.6 K/uL (0.7-4.9); Basophils % 0.6 % (0-1.3); Hematocrit 49.7 % (39.6-49.0); Lymphocytes % 35.1 % (15.3-44.8); MPV 9.5 fL (7.6-11.3); RBC Red Blood Cell Count 5.82 M/uL (4.33-5.43)
--- NOTE | 2020-03-27 09:09 | RAD REPORT ---
EXAM DESCRIPTION: RAD - Chest Single View - 03/27/2020 8:58 am CLINICAL HISTORY: CHEST PAIN Chest pain. COMPARISON: CHEST PA AND LAT 2 VIEW dated 01/03/2014; ABDOMEN ACUTE SERIES dated 05/14/2007 FINDINGS: Portable technique limits examination quality. The lungs are grossly clear. The heart is normal in size. No displaced fractures. IMPRESSION: No acute intrathoracic process suspected.
[2020-03-27] MEDS ORDERED: NA CHLORIDE 0.9% 1,000 ML ONE (09:24)
[2020-03-27 09:26] LABS: ALT/SGPT 101 U/L (12-78); AST/SGOT 56 U/L (15-37); Albumin 4.2 g/dL (3.4-5.0); Alkaline Phosphatase 77 U/L (45-117); BUN Blood Urea Nitrogen 13 mg/dL (7-18); Bicarbonate 27 mmol/L (21-32); Bilirubin Direct 0.2 mg/dL (0-0.2); Bilirubin Total 0.8 mg/dL (0.2-1.0); Glucose Level 108 mg/dL (74-106); Magnesium 2.3 mg/dL (1.8-2.4); Potassium 3.3 mmol/L (3.5-5.1); Protein, Total 7.9 g/dL (6.4-8.2); Sodium Level 139 mmol/L (136-145); Troponin (Emerg Dept Use Only) < 0.02 ng/mL (0.0-0.045)
--- NOTE | 2020-03-27 09:40 | ER ---
Nurse's Notes [facility] Name: Sudheer Duran Age: 25 yrs Sex: Male : 1995 Arrival Date: 03/27/2020 Time: 08:33 Bed 6 Private MD: Diagnosis: Chest pain, unspecified;Abnormal results of liver function studies Presentation: 03/27 08:44 Chief complaint: Patient states: "I feel like burning all in my chest, like a flutter. jl7 It sort of feels like when you're going down a roller-coaster and that feeling you get in you chest." Pt denies pain, reports light-headed and chest discomfort since yesterday. Coronavirus screen: Proceed with normal triage. Patient denies a cough. Patient denies shortness of breath or difficulty breathing. Patient denies measured and/or subjective temperature greater than 100.4F prior to today's visit. Patient denies travel on a cruise ship or to a country the [facility] currently lists as an affected area. Patient denies contact with known and/or suspected case of COVID-19. Ebola Screen: No symptoms or risks identified at this time. Initial Sepsis Screen: Does the patient meet any 2 criteria? No. Patient's initial sepsis screen is negative. Does the patient have a suspected source of infection? No. Patient's initial sepsis screen is negative. Risk Assessment: Do you want to hurt yourself or someone else? Patient reports no desire to harm self or others. Onset of symptoms was March 26, 2020. Care prior to arrival: None. 08:44 Method Of Arrival: Ambulatory jl7 08:44 Acuity: ALEXANDRE 3 jl7 Triage Assessment: 08:47 General: Appears in no apparent distress. uncomfortable, Behavior is cooperative, jl7 appropriate for age, anxious. Pain: Complains of pain in chest Pain does not radiate. Pain currently is 0 out of 10 on a pain scale. Quality of pain is described as burning, Pain began 1 day ago. Is intermittent. Neuro: Level of Consciousness is awake, alert, obeys commands, Oriented to person, place, time, situation. Cardiovascular: Reports lightheadedness, it feels like burning, like a flutter Patient's skin is warm and dry. Respiratory: Airway is patent Respiratory effort is even, unlabored, Respiratory pattern is regular, symmetrical. Derm: Skin is pink, warm \\T\\ dry. Historical: - Allergies: 08:47 No Known Allergies; jl7 - Home Meds: 08:47 None [Active]; jl7 - PMHx: 08:47 Hyperlipidemia; jl7 - PSHx: 08:47 None; jl7 - Immunization history:: Adult Immunizations unknown. - Social history:: Smoking status: Patient denies any tobacco usage or history of. Patient uses alcohol, only on a social basis. Screenin:27 Abuse screen: Denies threats or abuse. Denies injuries from another. Nutritional jl7 screening: No deficits noted. Tuberculosis screening: No symptoms or risk factors identified. Fall Risk IV access (20 points). Total Zapata Fall Scale indicates No Risk (0-24 pts). Assessment: 09:26 Reassessment: Patient appears in no apparent distress at this time. Patient and/or jl7 family updated on plan of care and expected duration. Pain level reassessed. Patient is alert, oriented x 3, equal unlabored respirations, skin warm/dry/pink. 09:52 Reassessment: Pt will be discharged once fluids are done infusing. jl7 Vital Signs: 08:44 BP 150 / 99; Pulse 94; Resp 19 S; Temp 98.4(TE); Pulse Ox 100% on R/A; Weight 102.06 kg jl7 (R); Height 5 ft. 9 in. (175.26 cm) (R); Pain 0/10; 08:59 BP 143 / 87 Supine; Pulse 91; ss 08:59 BP 137 / 92 Sitting; Pulse 91; ss 08:59 BP 141 / 93 Standing; Pulse 87; ss 09:24 BP 125 / 74; Pulse 87; Resp 15; Pulse Ox 100% ; jl7 08:44 Body Mass Index 33.23 (102.06 kg, 175.26 cm) jl7 ED Course: 08:33 Patient arrived in ED. mr 08:35 Wendy Jacobson [facility]-C [facility] kb 08:35 Aaron Alcantara MD is Attending Physician. kb 08:35 Luther Marina RN is Primary Nurse. jl7 08:43 Patient has correct armband on for positive identification. Placed in gown. Bed in low mh5 position. Side rails up X 1. Warm blanket given. monitoring coordinator on. Pulse ox on. NIBP on. 08:47 Triage completed. jl7 08:47 Arm band placed on right wrist. jl7 08:48 EKG done, by log data technician. reviewed by Wendy FARNSWORTH. at1 08:53 Inserted saline lock: 20 gauge in right antecubital area, using aseptic technique. ss Blood collected. Patient maintains SpO2 saturation greater than 95% on room air. 08:59 XRAY Chest (1 view) In Process Unspecified. EDMS 10:10 No provider procedures requiring assistance completed. IV discontinued, intact, jl7 bleeding controlled, No redness/swelling at site. Pressure dressing applied. Administered Medications: 09:23 Drug: NS 0.9% 1000 ml Route: IV; Rate: 1000 ml; Site: right antecubital; jl7 10:10 Follow up: Response: No adverse reaction; IV Status: Completed infusion; Order to jl7 discontinue infusion; IV Intake: 500ml Intake: 10:10 IV: 500ml; Total: 500ml. jl7 Outcome: 09:39 Discharge ordered by . kb 10:10 Discharged to home ambulatory. jl7 10:10 Condition: stable 10:10 Discharge instructions given to patient, Instructed on discharge instructions, follow up and referral plans. Demonstrated understanding of instructions, follow-up care. 10:12 Patient left the ED. jl7 Signatures: Dispatcher [employer] Wendy Beth, DAJA MISSILE INSPECTOR PREFLIGHT-Ckroger Elvia ShafferMaggie, RN RN Guerda Reyes, paralegal supervisor EKG Jacquleine Jenkins Luther Bird, RN RN jl7 Corrections: (The following items were deleted from the chart) 10:25 10:22 Patient left the ED. 5 jl7
--- NOTE | 2020-03-27 09:40 | EDPHYS ---
Physician Documentation [facility] Name: Sudheer Duran Age: 25 yrs Sex: Male : 1995 Arrival Date: 03/27/2020 Time: 08:33 Bed 6 Private MD: ED Physician Aaron Alcantara HPI: 03/27 08:54 This 25 yrs old Male presents to ER via Ambulatory with complaints of Chest kb Pain, Dizziness, High Blood Pressure. 08:54 The patient or guardian reports chest pain that is located primarily in the anterior kb chest wall, left. The pain does not radiate. Associated signs and symptoms: The patient has no apparent associated signs or symptoms. The chest pain is described as tingling/heaviness. Duration: The patient or guardian reports a single episode, that is still ongoing. Modifying factors: The symptoms are alleviated by nothing. the symptoms are aggravated by nothing. Severity of pain: At its worst the pain was mild in the emergency department the pain is unchanged. The patient has experienced similar episodes in the past. The patient has not recently seen a physician. Pt reports he has had tingling/heaviness to left chest since yesterday morning. States he like he was going to pass out so he came to get checked out. States he gets this feeling when he eats bad, but normally it only lasts a little while and goes away, it has never stayed this long. Reports he ate a lot of crawfish and drank a lot of beer over the weekend.. Historical: - Allergies: 08:47 No Known Allergies; jl7 - Home Meds: 08:47 None [Active]; jl7 - PMHx: 08:47 Hyperlipidemia; jl7 - PSHx: 08:47 None; jl7 - Immunization history:: Adult Immunizations unknown. - Social history:: Smoking status: Patient denies any tobacco usage or history of. Patient uses alcohol, only on a social basis. ROS: 08:51 Constitutional: Negative for fever, chills, and weight loss, ENT: Negative for injury, kb pain, and discharge, Neck: Negative for injury, pain, and swelling, Respiratory: Negative for shortness of breath, cough, wheezing, and pleuritic chest pain, Abdomen/GI: Negative for abdominal pain, nausea, vomiting, diarrhea, and constipation, Back: Negative for injury and pain, : Negative for injury, bleeding, discharge, and swelling, MS/Extremity: Negative for injury and deformity, Skin: Negative for injury, rash, and discoloration, Neuro: Negative for headache, weakness, numbness, tingling, and seizure. 08:51 Cardiovascular: Positive for chest pain, Negative for edema, orthopnea, palpitations, paroxysmal nocturnal dyspnea. Exam: 08:45 Constitutional: This is a well developed, well nourished patient who is awake, alert, kb and in no acute distress. Head/Face: Normocephalic, atraumatic. ENT: Nares patent. No nasal discharge, no septal abnormalities noted. Tympanic membranes are normal and external auditory canals are clear. Oropharynx with no redness, swelling, or masses, exudates, or evidence of obstruction, uvula midline. Mucous membranes moist. Neck: Trachea midline, no thyromegaly or masses palpated, and no cervical lymphadenopathy. Supple, full range of motion without nuchal rigidity, or vertebral point tenderness. No Meningismus. Chest/axilla: Normal chest wall appearance and motion. Nontender with no deformity. No lesions are appreciated. Cardiovascular: Regular rate and rhythm with a normal S1 and S2. No gallops, murmurs, or rubs. Normal PMI, no JVD. No pulse deficits. Respiratory: Lungs have equal breath sounds bilaterally, clear to auscultation and percussion. No rales, rhonchi or wheezes noted. No increased work of breathing, no retractions or nasal flaring. Abdomen/GI: Soft, non-tender, with normal bowel sounds. No distension or tympany. No guarding or rebound. No evidence of tenderness throughout. Skin: Warm, dry with normal turgor. Normal color with no rashes, no lesions, and no evidence of cellulitis. MS/ Extremity: Pulses equal, no cyanosis. Neurovascular intact. Full, normal range of motion. Neuro: Awake and alert, GCS 15, oriented to person, place, time, and situation. Cranial nerves II-XII grossly intact. Motor strength 5/5 in all extremities. Sensory grossly intact. Cerebellar exam normal. Normal gait. 08:45 ECG was reviewed by the Attending Physician. Vital Signs: 08:44 BP 150 / 99; Pulse 94; Resp 19 S; Temp 98.4(TE); Pulse Ox 100% on R/A; Weight 102.06 kg jl7 (R); Height 5 ft. 9 in. (175.26 cm) (R); Pain 0/10; 08:59 BP 143 / 87 Supine; Pulse 91; ss 08:59 BP 137 / 92 Sitting; Pulse 91; ss 08:59 BP 141 / 93 Standing; Pulse 87; ss 09:24 BP 125 / 74; Pulse 87; Resp 15; Pulse Ox 100% ; jl7 08:44 Body Mass Index 33.23 (102.06 kg, 175.26 cm) jl7 MDM: 08:35 Patient medically screened. kb 08:54 Data reviewed: vital signs, nurses notes. Data interpreted: Pulse oximetry: on room air kb is 100 %. Interpretation: normal. 09:39 Counseling: I had a detailed discussion with the patient and/or guardian regarding: the kb historical points, exam findings, and any diagnostic results supporting the discharge/admit diagnosis, lab results, radiology results, the need for outpatient follow up, a family practitioner, to return to the emergency department if symptoms worsen or persist or if there are any questions or concerns that arise at home. 03/27 08:41 Order name: Basic Metabolic Panel; Complete Time: 09:35 kb 03/27 08:41 Order name: CBC with Diff; Complete Time: 09:11 kb 03/27 08:41 Order name: LFT's; Complete Time: 09:35 kb 03/27 08:41 Order name: Magnesium; Complete Time: 09:35 kb 03/27 08:41 Order name: Troponin (emerg Dept Use Only); Complete Time: 09:35 kb 03/27 08:41 Order name: XRAY Chest (1 view); Complete Time: 09:16 kb 03/27 08:41 Order name: EKG; Complete Time: 08:42 kb 03/27 08:41 Order name: Cardiac monitoring; Complete Time: 08:50 kb 03/27 08:41 Order name: EKG - Nurse/Tech; Complete Time: 08:50 kb 03/27 08:41 Order name: IV Saline Lock; Complete Time: 08:50 kb 03/27 08:41 Order name: Labs collected and sent; Complete Time: 08:50 kb 03/27 08:41 Order name: O2 Per Protocol; Complete Time: 08:50 kb 03/27 08:41 Order name: O2 Sat Monitoring; Complete Time: 08:50 kb 03/27 08:41 Order name: Orthostatics; Complete Time: 08:54 kb EC:45 Rate is 95 beats/min. Rhythm is regular. Right axis deviation noted. NV interval is kb normal at 150 msec. QRS interval is normal at 88 msec. QT interval is normal at 354 msec. Administered Medications: 09:23 Drug: NS 0.9% 1000 ml Route: IV; Rate: 1000 ml; Site: right antecubital; jl7 10:10 Follow up: Response: No adverse reaction; IV Status: Completed infusion; Order to jl7 discontinue infusion; IV Intake: 500ml Disposition: 17:27 Co-signature as Attending Physician, Aaron Alcantara MD I agree with the assessment and kdr plan of care. Disposition: 03/27/20 09:39 Discharged to Home. Impression: Chest pain, unspecified, Abnormal results of liver function studies. - Condition is Stable. - Discharge Instructions: Nonspecific Chest Pain, [id number]. - Medication Reconciliation Form, Thank You Letter, Antibiotic Education, Prescription Opioid Use, Work release form form. - Follow up: Emergency Department; When: As needed; Reason: Worsening of condition. Follow up: Private Physician; When: 2 - 3 days; Reason: Recheck today's complaints, Continuance of care, Re-evaluation by your physician. Signatures: Dispatcher [employer] EDAK Wendy Jacobson, COMPUTER FORENSIC EXAMINER-C COMPUTER FORENSIC EXAMINER-Aaron Michel MD MD kdr Martinez, Maria 5 Luther Marina RN RN jl7 Corrections: (The following items were deleted from the chart) 10:22 09:39 03/27/2020 09:39 Discharged to Home. Impression: Chest pain, unspecified; mh5 Abnormal results of liver function studies. Condition is Stable. Forms are Medication Reconciliation Form, Thank You Letter, Antibiotic Education, Prescription Opioid Use. Follow up: Emergency Department; When: As needed; Reason: Worsening of condition. Follow up: Private Physician; When: 2 - 3 days; Reason: Recheck today's complaints, Continuance of care, Re-evaluation by your physician. kb
[2020-03-27 10:30] VITALS: TEMP 98.4; O2SAT 100
[2020-03-27 10:33] VITALS: BP 125/74
--- NOTE | 2020-03-27 18:06 | EKG ---
Test Date: 2020-03-27 Test Time: 08:41:35 Nurse Infection Control: KYLE MEASUREMENT RESULTS: Intervals: Rate: 95 AR: 150 QRSD: 88 QT: 354 QTc: 444 [place]: P: 45 AR: 150 QRS: 92 T: -32 INTERPRETIVE STATEMENTS: Normal sinus rhythm Rightward axis Cannot rule out Inferior infarct, age undetermined Abnormal ECG Compared to ECG 01/03/2014 17:57:32 Right-axis deviation now present Myocardial infarct finding now present Electronically Signed On 03-27-20 18:06:20 CDT by Donald Gaitan
== END 2020-03-27 10:22 | disposition home or self-care (01) ==
LOC: ER 08:30
DX: R07.9 Chest pain, unspecified (principal); R94.5 Abnormal results of liver function studies
CPT/HCPCS: 93005; 85025; 80048; 36415; 83735; 80076; 84484; 71045; 96360; 99285; J7030

== ENCOUNTER 2020-06-06 18:17 | Emergency (ER) | payer BC ==
--- NOTE | 2020-06-06 21:56 | ER ---
Nurse's Notes [facility] Name: Sudheer Duran Age: 25 yrs Sex: Male : 1995 Arrival Date: 06/06/2020 Time: 18:54 Bed Waiting Private MD: Diagnosis: Presentation: 06/06 18:57 Chief complaint: Patient states: Chest pain started around noon, it was bearable then. ca1 At 1700 chest pain got worst, crushing, across chest radiating to L arm, lightheaded, dizzy, pale and sweating. Coronavirus screen: Proceed with normal triage. Patient denies a cough. Patient denies shortness of breath or difficulty breathing. Patient denies measured and/or subjective temperature greater than 100.4F prior to today's visit. Patient denies travel on a cruise ship or to a country the [facility] currently lists as an affected area. Patient denies contact with known and/or suspected case of COVID-19. Ebola Screen: Patient negative for fever greater than or equal to 101.5 degrees Fahrenheit, and additional compatible Ebola Virus Disease symptoms Patient denies exposure to infectious person. Patient denies travel to an Ebola-affected area in the 21 days before illness onset. No symptoms or risks identified at this time. Initial Sepsis Screen: Does the patient meet any 2 criteria? No. Patient's initial sepsis screen is negative. Does the patient have a suspected source of infection? No. Patient's initial sepsis screen is negative. Risk Assessment: Do you want to hurt yourself or someone else? Patient reports no desire to harm self or others. Onset of symptoms was June 06, 2020. Care prior to arrival: Medication(s) given: ASA, 81 mg, x 4, Nitroglycerin, 0.4 mg SL x 1, IV initiated. 22 GA, in the left hand. 18:57 Method Of Arrival: EMS: [facility] ca1 18:57 Acuity: ALEXANDRE 3 ca1 Historical: - Allergies: 19:02 No Known Allergies; ca1 - Home Meds: 19:02 None [Active]; ca1 - PMHx: 19:02 Hyperlipidemia; ca1 - PSHx: 19:02 None; ca1 - Immunization history:: Adult Immunizations up to date. - Social history:: Smoking status: Patient denies any tobacco usage or history of. Vital Signs: 18:57 BP 119 / 69; Pulse 85; Resp 15 S; Temp 98.2(TE); Pulse Ox 96% on R/A; Weight 99.79 kg ca1 (R); Height 5 ft. 9 in. (175.26 cm) (R); Pain 5/10; 18:57 Body Mass Index 32.49 (99.79 kg, 175.26 cm) ca1 ED Course: 18:54 Patient arrived in ED. mr 19:02 Triage completed. ca1 19:02 Arm band placed on right wrist. ca1 Administered Medications: No medications were administered Outcome: 21:55 Patient left the ED. dm5 Signatures: Lena Reyes RN RN dm5 Elvia Shaffer mr Areli Jenkins RN RN ca1
[2020-06-06 22:05] VITALS: BP 119/69; TEMP 98.2; O2SAT 96
== END 2020-06-06 21:55 | disposition left against medical advice (07) ==
LOC: ER 18:17
DX: R07.9 Chest pain, unspecified (principal); Z53.21 Procedure and treatment not carried out due to patient leaving prior to being seen by health care provider
CPT/HCPCS: 99282

== ENCOUNTER 2020-09-15 22:54 | Emergency (ER) | payer BC, SELFPAY ==
--- OUTSIDE RECORDS SUMMARY | 2020-09-15 22:57 | XMS REPORT | Continuity of Care Document ---
:1995 Author Organization [facility] t Address [address] [place] [address] [address]. [address] [place] [address] Care Team Providers Name Role Phone Nuvia Sarkar Attending Clinician Mitchell KAUFFMAN Attending Clinician Problems This patient has no known problems. Allergies, Adverse Reactions, Alerts This patient has no known allergies or adverse reactions. Medications This patient has no known medications. Procedures This patient has no known procedures. Encounters Start End Encounter Admission Attending Care Care Encounter Source Date/Time Date/Time Type Type Clinicians Facility Department ID 2020-06-30 2020-06-30 Emergency Christina Ennis [facility] [id number] 15:40:00 20:45:00 [facility] [place] [id number] [place] [id number] [place] [id number] Results This patient has no known results.
--- OUTSIDE RECORDS SUMMARY | 2020-09-15 22:57 | XMS REPORT | Summary of Care ---
:1995 Author Organization [facility] Address [address] [place] [id number] Care Team Providers Name Role Phone Pcp, Does Not Have A Primary Care Provider Reason for Referral MRI/CAT Scan (STAT) Status Reason Specialty Diagnoses / Referred By Referred To Procedures Contact Contact New Request Diagnostic Diagnoses Abdominal pain, unspecified abdominal location RLQ abdominal pain Hematuria, unspecified type Shell Beth, Radiology Procedures CT ABDOMEN PELVIS W CONTRAST [address] [phone] Reason for Visit Reason Comments Abdominal Pain Auth/Cert Status Reason Specialty Diagnoses / Referred By Referred To Procedures Contact Contact Emergency Medicine Diagnoses RT SIDE ABD/FLANK PAIN [facility] Emergency Dept [address] [place] [address] Fax: Encounter Details Date Type Department Care Team Description 06/30/2020 Emergency ADC-Emergency Christina Ennis , [address] [place] [id number] RLQ abdominal pain (Primary Dx); Department Shell Beth, [address] [phone] Abdominal pain, unspecified abdominal lo cation; [address] [place] [address] Hematuria, unspecified type [place] [phone] Allergies No Known Allergiesdocumented as of this encounter (statuses as of 06/30/2020) Medications Medication Sig Dispensed Refills Start Date End Date Status acetaminophen-codeine Take 1 tablet by 12 tablet 0 06/30/2020 07/07/2020 Active 300-30 mg mouth every 6 tabletIndications: (six) hours as acute pain needed for Pain (scale 7-10) for up to 7 days. Indications: acute pain ondansetron (ZOFRAN Take 1 tablet by 15 tablet 0 06/30/2020 Active ODT) 4 mg mouth every 8 disintegrating (eight) hours as tabletIndications: needed for Abdominal pain, Nausea and unspecified abdominal Vomiting (N/V). location, RLQ abdominal pain, Hematuria, unspecified type documented as of this encounter (statuses as of 06/30/2020) Active Problems No known active problemsdocumented as of this encounter (statuses as of 06/30/2020) Social History Tobacco Use Types Packs/Day Years Used Date Never Assessed Sex Assigned at Date Recorded Not on file COVID-19 Exposure Response Date Recorded In the last month, have you been in contact with No / Unsure 06/30/2020 3:36 PM CDT someone who was confirmed or suspected to have Coronavirus / COVID-19? documented as of this encounter Last Filed Vital Signs Vital Sign Reading Time Taken Comments Blood Pressure 116/52 06/30/2020 7:00 PM CDT Pulse 66 06/30/2020 7:00 PM CDT Temperature 36.4 C (97.6 F) 06/30/2020 3:38 PM CDT Respiratory Rate 16 06/30/2020 7:00 PM CDT Oxygen Saturation 98% 06/30/2020 7:00 PM CDT Inhaled Oxygen Concentration - - Weight 93 kg (205 lb) 06/30/2020 3:38 PM CDT Height 175.3 cm (5' 9") 06/30/2020 3:38 PM CDT Body Mass Index 30.27 06/30/2020 3:38 PM CDT documented in this encounter Discharge Instructions Shell Sin FNP - 06/30/2020Please return to the ER if you have any increasing abdominal pain, nausea and vomiting unrelieved by medications, inability to tolerate food or fluids, fever, chills, or any other symptom you feel is abnormal. Follow up with your general provider after this ER visit. Medication for pain and nausea hasbeen prescribed for you. AttachmentsThe following attachments cannot be sent through Care Everywhere. Abdominal Pain, Adult (Belgian)Hematuria: Possible Causes (Belgian)documented in this encounter ED Notes Pati Mccollum RN - 06/30/2020 3:36 PM CDTPresents to ED c/o mid upper abd pain since this morning that has traveled to the right lower abd. Patient describes the pain as a constant, sharp pressure. Denies N/V/D/fever. Last meal @ 1230 today. Denies dysuria/constipation. PMH: heart palpitations PSH: none documented in this encounter Miscellaneous Notes ED Nurse Note - Angela Joiner RN - 06/30/2020 8:44 PM CDTPt given printed and verbal discharge instructions regarding abdominal pain, encouraged hydration, Prescriptions provided Tylenol #3 & zofran Discussed tramadol/phenergan/Tylenol # 3 side affects and to avoid driving/operating machinery/or engaging in activities requiring alertness while taking. Pt verbalized understanding of instructions, pt awake alert oriented, resp reg unlabored, skin w/d, color appropriate for race, moves all ext well,pt encouraged to follow up with PCP. Advised to seek medical attention for new/prolonged/worsening of symptoms, Symptoms improved No adverse reaction to meds given in ER noted upon discharge PIV d'cd, dressing to site, catheter in tact. Awake, alert oriented, resp reg unlabored, skin w/d, pt leaving amb with steady gait, in no apparent distress, D Nurse Note - Angela Joiner RN - 06/30/2020 7:14 PM CDTUpdated patient of delay. documented in this encounter Plan of Treatment Name Type Priority Associated Diagnoses Date/Ti me CT ABDOMEN PELVIS W IMAGING STAT Abdominal pain, 06/30 4:49 PM CONTRAST unspecified abdominal CDT location RLQ abdominal pa in Hematuria, unspecified type Health Maintenance Due Date Last Done Comments VARICELLA VACCINES (1 of 2 - 1994 2-dose childhood series) Depression Screening 2005 DTaP,Tdap,and Td Vaccines (1 - 2012 Tdap) INFLUENZA VACCINE (#1) 2020 PNEUMOCOCCAL 0-64 YEARS COMBINED Aged Out No longer eligible based on SERIES patient's age to complete this topic documented as of this encounter Procedures Procedure Name Priority Date/Time Associated Diagnosis Comme nts CT ABDOMEN PELVIS W STAT 06/30/2020 4:49 PM Abdominal pain , CONTRAST CDT unspecified abdominal location RLQ abdominal pa in Hematuria, unspecified type Procedure Note - [facility], Radia nt Results Inft User - 06/30/2020 7:44 PM CDT EXAM: CT ABDOMEN AND PELVIS WITH CONTRAST HISTORY: 25-year-old male wi th hematuria and right lower quadrant pain, evaluate for appendicitis or ureteral stone COMPARISON: None. DOSE: Total exam DLP 403 mGy -cm TECHNIQUE AND FINDINGS: Cont iguous axial imaging was performed from the lung bases to the proximal f emurs after the administration of intravenous Omnipaque contrast in the po rtal venous phase. Coronal and sagittal reconstructions were obtaine d. FINDINGS: LOWER THORAX: Subtle periphe ral groundglass opacities are partially visualized in the left lower lobe and right upper lobe (2:1, 2:3). LIVER: No focal hepatic lesi ons. Normal liver contour. No intrahepatic ductal dilatation. The marcio l veins are patent. GALLBLADDER AND BILIARY TREE : No biliary ductal dilation. No hyperdense stones. SPLEEN: No splenomegaly. PANCREAS: No ductal dilation . ADRENAL GLANDS: No adrenal n odules. KIDNEYS: No hydronephrosis, stones, or contour deforming lesions. PERITONEUM AND RETROPERITONE UM: No free air or free fluid. LYMPH NODES: No lymphadenopa thy. GI TRACT: No bowel dilatatio n or abnormal wall thickening. Small bowel appears normal including non dilated appendix. PELVIS/BLADDER: The urinary bladder appears essentially normal. Pelvic phleboliths are visualized. VESSELS: Unremarkable. BONES AND SOFT TISSUES: No s uspicious lytic or sclerotic bone lesions. IMPRESSION 1. No hyperattenuating kidn ey stones or hydronephrosis. 2. The bilateral kidneys ap pear normal in size without nonenhancing focal regions. 3. Subtle peripheral ground glass opacities are seen in the left lower and right upper lobes of the yoli g, which may be seen in the setting of atypical infection. Preliminary Report Dictated by Resident: Erasmo Johnson URINALYSIS STAT 06/30/2020 3:53 PM Abdominal pain, Resul ts for this CDT unspecified procedure are i n abdominal location the resul ts section. CBC WITH DIFF STAT 06/30/2020 3:53 PM Abdominal pain, Resu lts for this CDT unspecified procedure are i n abdominal location the resul ts section. BASIC METABOLIC STAT 06/30/2020 3:53 PM Abdominal pain, Re sults for this PANEL (NA, K, CL, CDT unspecified procedure are in CO2, GLUCOSE, BUN, abdominal location the results CREATININE, CA) section. HEPATIC FUNCTION STAT 06/30/2020 3:53 PM Abdominal pain, R esults for this PANEL (75960) CDT unspecified procedure are in (ALB,T.PRO,BILI abdominal location the re sults T,BU/BC,ALT,AST,ALK section. PHOS) LIPASE STAT 06/30/2020 3:53 PM Abdominal pain, Resul ts for this CDT unspecified procedure are i n abdominal location the resul ts section. NOTICE OF PRIVACY Routine 06/30/2020 3:26 PM PRACTICES CDT CONSENT/REFUSAL FOR Routine 06/30/2020 3:26 PM DIAGNOSIS AND CDT TREATMENT documented in this encounter Results Lipase Serum (06/30/2020 3:53 PM CDT) Pathologist [facility] tena LIPASE 96 0 - 220 U/L [facility] Specimen Blood - VENOUS Performing Organization Address City/State/Zipcode Phone Number [facility] CLIA: [id number] [place], [place] [id number] LAB[address] Hepatic Function Panel (ALB, T.PRO, BILI T, BU/BC, ALT, AST, ALK PHOS) (06/30/2020 3:53 PM CDT) Pathologist Sig nature TOTAL BILI 0.5 0.1 - 1.1 mg/dL [facility] BILI UNCON 0.6 0.1 - 1.1 mg/dL [facility] BILI CONJ 0.0 0.0 - 0.3 mg/dL [facility] T PROTEIN 7.6 6.3 - 8.2 g/dL [facility] ALBUMIN 4.3 3.5 - 5.0 g/dL [facility] ALK PHOS 58 34 - 122 U/L [facility] ALTv 44 5 - 50 U/L [facility] AST(SGOT) 34 13 - 40 U/L [facility] Specimen Blood - VENOUS Performing Organization Address City/State/Zipcode Phone Number [facility] CLIA: [id number] [place] [address] Basic Metabolic Panel (NA, K, CL, CO2, GLUCOSE, BUN, CREATININE, CA) (06/30/2020 3:53 PM CDT) [facility] NA 138 135 - 145 mmol/L [facility] K 3.7 3.5 - 5.0 mmol/L [facility] CL 101 98 - 108 mmol/L [facility] CO2 TOTAL 28 23 - 31 mmol/L [facility] AGAP 9 2 - 16 [facility] BUN 14 7 - 23 mg/dL [facility] GLUCOSE 94 70 - 110 mg/dL [facility] CREATININE 0.94 0.60 - 1.25 [facility] mg/dL [facility] CALCIUM 9.1 8.6 - 10.6 mg/dL [facility] eGFR Calculation 96.3 mL/min/1.73m2 [facility] (Non-) [facility] Y eGFR Calculation 116.7 mL/min/1.73m2 [facility] () [facility] Specimen Blood - VENOUS Narrative Performed At Association of Glomerular Filtration Rate (GFR) [facility] and Staging of Kidney Disease* + + +- + | GFR (mL/min/1.73 m2) | With Kidney Damage | Without Kidney Damage + + +- + | >90 | Stage one | Normal + + +- + | 60-89 | Stage two | Decreased GFR + + +- + | 30-59 | Stage three | Stage three + + +- + | 15-29 | Stage four | Stage four + + +- + | <15 (or dialysis) | Stage five | Stage five + + +- + *Each stage assumes the associated GFR level has been in effect for at least three months. Stages 1 to 5, with or without kidney disease, indicate chronic kidney disease. Notes: Determination of stages one and two (with eGFR >59mL/min/1.73 m2) requires estimation of kidney damage for at least three months as defined by structural or functional abnormalities of the kidney, manifested by either: Pathological abnormalities or Markers of kidney damage (including abnormalities in the composition of the blood or urine or abnormalities in imaging tests). Performing Organization Address City/State/Zipcode Phone Number [facility] CLIA: [id number] [place] [address] CBC with Differential (06/30/2020 3:53 PM CDT) [facility] WBC 8.51 4.20 - 10.70 [facility] 10*3/L [facility] RBC 5.29 4.26 - 5.52 [facility] 10*6/L [facility] HGB 15.5 12.2 - 16.4 [facility] g/dL [facility] HCT 44.6 38.4 - 49.3 % [facility] MCV 84.3 81.7 - 95.6 fL [facility] MCH 29.3 26.1 - 32.7 pg [facility] MCHC 34.8 31.2 - 35.0 [facility] g/dL [facility] RDW-SD 35.5 (L) 38.5 - 51.6 fL [facility] RDW-CV 11.7 (L) 12.1 - 15.4 % [facility] PLT 206 150 - 328 [facility] 10*3/L [facility] MPV 10.9 9.8 - 13.0 fL [facility] NRBC/100 WBC 0.0 0.0 - 10.0 /100 [facility] WBCs [facility] NRBC x10^3 <0.01 10*3/L [facility] GRAN MAT (NEUT) % 72.4 % [facility] IMM GRAN % 0.50 % [facility] LYMPH % 20.7 % [facility] MONO % 6.1 % [facility] EOS % 0.2 % [facility] BASO % 0.1 % [facility] GRAN MAT x10^3(ANC) 6.16 1.99 - 6.95 [facility] 10*3/uL [facility] IMM GRAN x10^3 0.04 0.00 - 0.06 [facility] 10*3/uL [facility] LYMPH x10^3 1.76 1.09 - 3.23 [facility] 10*3/uL [facility] MONO x10^3 0.52 0.36 - 1.02 [facility] 10*3/uL HOSPITAL LAB[facility] EOS x10^3 <0.03 (L) 0.06 - 0.53 [facility] 10*3/uL [facility] BASO x10^3 <0.03 0.01 - 0.09 [facility] 10*3/uL [facility] Specimen Blood - VENOUS Performing Organization Address [facility] Phone Number [facility] CLIA: [id number] [place] [address] Urinalysis (06/30/2020 3:53 PM CDT) Pathologist Sig nature APPEARANCE Clear Clear [facility] COLOR Yellow Yellow [facility] PH 7.0 4.8 - 8.0 [facility] SP GRAVITY 1.016 1.003 - 1.030 [facility] GLU U QUAL Normal Normal [facility] BLOOD 1+ (A) Negative [facility] KETONES Negative Negative [facility] PROTEIN Negative Negative [facility] UROBILIN 4.0 mg/dL (A) Normal [facility] BILIRUBIN Negative Negative [facility] NITRITE Negative Negative [facility] LEUK ANURAG Negative Negative [facility] RBC/HPF 1 0 - 3 HPF [facility] WBC/HPF 1 0 - 5 HPF [facility] BACTERIA Negative Negative [facility] MUCOUS Slight (A) Negative LPF [facility] Specimen Urine - URINE, CLEAN CATCH Performing Organization Address [facility] Phone Number [facility] CLIA: [id number] [place], [place] [phone] LABORATORY [address] documented in this encounter Visit Diagnoses Diagnosis RLQ abdominal pain - Primary Abdominal pain, right lower quadrant Abdominal pain, unspecified abdominal lo cation Hematuria, unspecified type documented in this encounter Administered Medications Medication Order MAR Action Action Date Dose Rate Site iohexol (OMNIPAQUE 350 BULK-150 Given 06/30/2020 4:40 PM CDT 12 0 mL mL) injection 120 mL 120 mL, Intravenous, ONCE, 1 dose, 06/30/20 at 1700, Routine ketorolac (TORADOL) injection 30 mg Given 06/30/2020 4:26 PM CDT 30 mg 30 mg, Slow IV Push, ONCE, 1 dose, 06/30/20 at 1730, SKYLER, modular set crew member approving Restricted medication: SHELL BETH ondansetron (ZOFRAN (PF)) injection 4 mg Given 06/30/2020 4:27 PM CDT 4 mg 4 mg, Slow IV Push, ONCE, 1 dose, 06/30/20 at 1730, SKYLER documented in this encounter Insurance Payer Benefit Plan Subscriber ID Effective Dates Phone Address Type / Group [employer] OF [facility] [id number] 2019-Kristopher [phone] [address] PPO/POS [place] [id number] [place] [address] documented as of this encounter
[2020-09-15 23:22] LABS: Protime INR 0.94
[2020-09-15 23:23] LABS: Absolute Lymphocytes (CBC) 1.5 K/uL (0.7-4.9); Basophils % 0.7 % (0-1.3); Hematocrit 47.9 % (39.6-49.0); Lymphocytes % 16.2 % (15.3-44.8); MPV 9.3 fL (7.6-11.3); RBC Red Blood Cell Count 5.57 M/uL (4.33-5.43)
[2020-09-15 23:38] LABS: ALT/SGPT 48 U/L (12-78); AST/SGOT 28 U/L (15-37); Albumin 4.3 g/dL (3.4-5.0); Alkaline Phosphatase 76 U/L (45-117); BUN Blood Urea Nitrogen 11 mg/dL (7-18); Bicarbonate 24 mmol/L (21-32); Bilirubin Direct 0.1 mg/dL (0-0.2); Bilirubin Total 0.5 mg/dL (0.2-1.0); Glucose Level 99 mg/dL (74-106); NT PRO-BNP 36 pg/mL (<125); Potassium 3.4 mmol/L (3.5-5.1); Sodium Level 139 mmol/L (136-145); Troponin (Emerg Dept Use Only) < 0.02 ng/mL (0.0-0.045)
[2020-09-15] MEDS ORDERED: KETOROLAC 30 MG/ML INJ ONE (23:44)
[2020-09-15 23:50] LABS: Barbiturates NEGATIVE (NEGATIVE); Benzodiazepines NEGATIVE (NEGATIVE); Cocaine NEGATIVE (NEGATIVE); METHAMPHETAM NEGATIVE (NEGATIVE); Methadone NEGATIVE (NEGATIVE); Opiates NEGATIVE (NEGATIVE); Phencyclidine NEGATIVE (NEGATIVE); THC Cannibis NEGATIVE (NEGATIVE)
[2020-09-16 01:10] LABS: Urine Blood TRACE (NEG); Urine Glucose NEGATIVE (NEG); Urine Protein NEGATIVE (NEG)
--- NOTE | 2020-09-16 02:11 | EDPHYS ---
Physician Documentation [facility] Name: Sudheer Duran Age: 25 yrs Sex: Male : 1995 Arrival Date: 09/15/2020 Time: 22:55 Bed 6 Private MD: Guy Roldan ED Physician Cali Logan HPI: 09/16 02:03 This 25 yrs old Male presents to ER via Ambulatory with complaints of tw4 palpitations, chest pressure. 02:03 The patient presents with a history of heart racing. Context: The symptoms occur at tw4 rest. Onset: The symptoms/episode began/occurred just prior to arrival, today. Duration: The patient or guardian reports multiple episodes, that are intermittent, with no pattern. Modifying factors: The symptoms are aggravated by nothing. The symptoms are alleviated by nothing. Severity of symptoms: At their worst the symptoms were mild in the emergency department the symptoms have improved. The patient has not experienced similar symptoms in the past. Historical: - Allergies: 09/15 23:06 No Known Allergies; jd3 - Home Meds: 23:06 None [Active]; jd3 - PMHx: 23:06 Hyperlipidemia; jd3 - PSHx: 23:06 None; jd3 - Immunization history:: Adult Immunizations up to date. - Social history:: Smoking status: Patient/guardian denies using tobacco, the patient reports quitting approximately 2 years ago. ROS: 09/16 02:03 Constitutional: Negative for fever, chills, and weight loss, Eyes: Negative for injury, tw4 pain, redness, and discharge. Respiratory: Negative for shortness of breath, cough, wheezing, and pleuritic chest pain, Abdomen/GI: Negative for abdominal pain, nausea, vomiting, diarrhea, and constipation, Back: Negative for injury and pain, MS/Extremity: Negative for injury and deformity, Skin: Negative for injury, rash, and discoloration, Neuro: Negative for headache, weakness, numbness, tingling, and seizure. Cardiovascular: Positive for chest pain, palpitations, Negative for edema, orthopnea. Exam: 02:03 Constitutional: This is a well developed, well nourished patient who is awake, alert, tw4 and in no acute distress. Head/Face: Normocephalic, atraumatic. Chest/axilla: Normal chest wall appearance and motion. Nontender with no deformity. No lesions are appreciated. Cardiovascular: Regular rate and rhythm with a normal S1 and S2. No gallops, murmurs, or rubs. Normal PMI, no JVD. No pulse deficits. Respiratory: Lungs have equal breath sounds bilaterally, clear to auscultation and percussion. No rales, rhonchi or wheezes noted. No increased work of breathing, no retractions or nasal flaring. Abdomen/GI: Soft, non-tender, with normal bowel sounds. No distension or tympany. No guarding or rebound. No evidence of tenderness throughout. Back: No spinal tenderness. No costovertebral tenderness. Full range of motion. MS/ Extremity: Pulses equal, no cyanosis. Neurovascular intact. Full, normal range of motion. Psych: Awake, alert, with orientation to person, place and time. Behavior, mood, and affect are within normal limits. Vital Signs: 09/15 23:06 BP 140 / 84; Pulse 83; Resp 18 S; Temp 98.5(TE); Pulse Ox 98% on R/A; Weight 92.99 kg jd3 (R); Height 5 ft. 9 in. (175.26 cm) (R); Pain 5/10; 09/16 00:35 BP 129 / 69; Pulse 68; Resp 14; Pulse Ox 98% on R/A; ll2 01:45 BP 132 / 69; Pulse 71; Resp 17; Pulse Ox 99% on R/A; ll2 09/15 23:06 Body Mass Index 30.27 (92.99 kg, 175.26 cm) jd3 MDM: 09/15 23:03 Patient medically screened. tw4 09/16 02:03 Differential diagnosis: arrythmia. Data reviewed: vital signs, nurses notes. Data tw4 reviewed: lab test result(s), cardiac enzymes, CBC, hepatic panel. Data interpreted: Pulse oximetry: Interpretation: normal. Counseling: I had a detailed discussion with the patient and/or guardian regarding: the historical points, exam findings, and any diagnostic results supporting the discharge/admit diagnosis, lab results, radiology results. Special discussion: Based on the patient's history, exam, and Dx evaluation, there is no indication for emergent intervention or inpatient Tx. It is understood by the patient/guardian that if the Sx's persist or worsen they need to return immediately for re-evaluation. 02:10 Special discussion: I discussed with the patient/guardian in detail that at this point tw4 there is no indication for admission to the hospital. It is understood, however, that if the symptoms persist or worsen the patient needs to return immediately for re-evaluation. 09/15 23:04 Order name: Basic Metabolic Panel tw4 09/15 23:04 Order name: CBC with Diff tw4 09/15 23:04 Order name: LFT's tw4 09/15 23:04 Order name: Magnesium; Complete Time: 02:09 tw4 09/16 02:09 Interpretation: Within normal limits: MG 2.0. tw4 09/15 23:04 Order name: NT PRO-BNP; Complete Time: 02:09 tw4 09/16 02:09 Interpretation: Within normal limits: NT PRO-BNP 36. tw4 09/15 23:04 Order name: PT-INR; Complete Time: 02:09 4 09/16 02:10 Interpretation: Within normal limits: PT 11.1. tw4 09/15 23:04 Order name: Troponin (emerg Dept Use Only); Complete Time: 02:09 tw4 09/16 02:10 Interpretation: Within normal limits: TROPED < 0.02. tw4 09/15 23:04 Order name: XRAY Chest (1 view) tw4 09/15 23:04 Order name: Urine Drug Screen; Complete Time: 02:09 tw4 09/16 02:10 Interpretation: Within normal limits. tw4 09/15 23:04 Order name: Basic Metabolic Panel; Complete Time: 02:09 EDMS 09/16 02:09 Interpretation: Normal except: K 3.4; GFR 89; CL 108. tw4 09/15 23:04 Order name: CBC with Automated Diff; Complete Time: 02:09 EDMS 09/16 02:09 Interpretation: Normal except: RBC 5.57; JOSH% 77.8. tw4 09/15 23:04 Order name: Liver (Hepatic) Function; Complete Time: 02:09 EDMS 09/16 02:09 Interpretation: Normal except: GLOB 3.7. tw4 09/15 23:35 Order name: Urine Dipstick--Ancillary (enter results); Complete Time: 02:09 ds4 09/16 02:09 Interpretation: Normal except: UBLD TRACE. tw4 09/16 01:27 Order name: Troponin (emerg Dept Use Only); Complete Time: 02:09 ea 09/16 02:10 Interpretation: Within normal limits: TROPED < 0.02. tw4 09/15 23:04 Order name: EKG; Complete Time: 23:05 tw4 09/15 23:04 Order name: Cardiac monitoring; Complete Time: 23:20 tw4 09/15 23:04 Order name: EKG - Nurse/Tech; Complete Time: 23:20 tw4 09/15 23:04 Order name: IV Saline Lock; Complete Time: 23:20 tw4 09/15 23:04 Order name: Labs collected and sent; Complete Time: 23:20 tw4 09/15 23:04 Order name: O2 Per Protocol; Complete Time: 23:20 tw4 09/15 23:04 Order name: O2 Sat Monitoring; Complete Time: 23:20 tw4 EC:24 Rate is 79 beats/min. Rhythm is regular. QRS [place] is Normal. UT interval is normal. QRS tw4 interval is normal. QT interval is normal. No Q waves. T waves are Inverted in leads III, V4. T waves are Flattened in leads aVF, V5, V6. No ST changes noted. Clinical impression: NSR w/ Non-specific ST/T Changes. Interpreted by me. Administered Medications: 09/15 23:33 Drug: TORadol 30 mg Route: IVP; Site: left antecubital; ll2 09/16 02:05 Follow up: Response: No adverse reaction ll2 02:09 Drug: K-Lyte Effervescent Tablet 25 mEq Route: PO; ll2 02:09 Follow up: Response: No adverse reaction ll2 Disposition: 09/16/20 02:11 Discharged to Home. Impression: Other chest pain, Palpitations. - Condition is Stable. - Discharge Instructions: Nonspecific Chest Pain, Holter Monitoring, Palpitations, Cardiac Event Monitoring. - Medication Reconciliation Form, Thank You Letter, Antibiotic Education, Prescription Opioid Use form. - Follow up: Private Physician; When: Upon discharge from the Emergency Department; Reason: Recheck today's complaints, Continuance of care, Re-evaluation by your physician. Follow up: Guy Roldan DO; When: Upon discharge from the Emergency Department; Reason: Recheck today's complaints, Continuance of care, Re-evaluation by your physician. Follow up: Donald Gaitan MD; When: Upon discharge from the Emergency Department; Reason: Recheck today's complaints, Continuance of care, Re-evaluation by your physician. - Problem is new. - Symptoms have improved. Signatures: Dispatcher [employer] Godfrey Coello RN RN jd3 Cali Logan MD MD tw4 Carin Mishra RN RN ll2 Corrections: (The following items were deleted from the chart) 02:11 02:11 09/16/2020 02:11 Discharged to Home. Impression: Other chest pain; Palpitations. tw4 Condition is Stable. Forms are Medication Reconciliation Form, Thank You Letter, Antibiotic Education, Prescription Opioid Use. Follow up: Private Physician; When: Upon discharge from the Emergency Department; Reason: Recheck today's complaints, Continuance of care, Re-evaluation by your physician. Problem is new. Symptoms have improved. tw4 02:18 02:11 09/16/2020 02:11 Discharged to Home. Impression: Other chest pain; Palpitations. ll2 Condition is Stable. Discharge Instructions: Nonspecific Chest Pain, Holter Monitoring, Palpitations, Cardiac Event Monitoring. Forms are Medication Reconciliation Form, Thank You Letter, Antibiotic Education, Prescription Opioid Use. Follow up: Private Physician; When: Upon discharge from the Emergency Department; Reason: Recheck today's complaints, Continuance of care, Re-evaluation by your physician. Follow up: Guy Roldan; When: Upon discharge from the Emergency Department; Reason: Recheck today's complaints, Continuance of care, Re-evaluation by your physician. Follow up: Donald Gaitan; When: Upon discharge from the Emergency Department; Reason: Recheck today's complaints, Continuance of care, Re-evaluation by your physician. Problem is new. Symptoms have improved. tw4
--- NOTE | 2020-09-16 02:11 | ER ---
Nurse's Notes [facility] Name: Sudheer Duran Age: 25 yrs Sex: Male : 1995 Arrival Date: 09/15/2020 Time: 22:55 Bed 6 Private MD: Guy Roldan Diagnosis: Other chest pain;Palpitations Presentation: 09/15 23:03 Chief complaint: Patient states: "I have been having this chest pain on and off for 2 jd3 months now, my PCP told me see a breaker layer and I saw Dr. Olea. he did a stress test 2 months ago and I am due for a stress test, but I need to see him again to get that done. the thing that was scaring me was that the pain travelers to me left arm.". Coronavirus screen: At this time, the client does not indicate any symptoms associated with coronavirus-19. Ebola Screen: Patient negative for fever greater than or equal to 101.5 degrees Fahrenheit, and additional compatible Ebola Virus Disease symptoms. Initial Sepsis Screen: Does the patient meet any 2 criteria? No. Patient's initial sepsis screen is negative. Does the patient have a suspected source of infection? No. Patient's initial sepsis screen is negative. Risk Assessment: Do you want to hurt yourself or someone else? Patient reports no desire to harm self or others. Onset of symptoms was September 15, 2020. 23:03 Method Of Arrival: Ambulatory jd3 23:03 Acuity: ALEXANDRE 3 jd3 Historical: - Allergies: 23:06 No Known Allergies; jd3 - Home Meds: 23:06 None [Active]; jd3 - PMHx: 23:06 Hyperlipidemia; jd3 - PSHx: 23:06 None; jd3 - Immunization history:: Adult Immunizations up to date. - Social history:: Smoking status: Patient/guardian denies using tobacco, the patient reports quitting approximately 2 years ago. Screenin:08 Abuse screen: Denies threats or abuse. Nutritional screening: No deficits noted. ll2 Tuberculosis screening: No symptoms or risk factors identified. Fall Risk IV access (20 points). Ambulatory Aid- None/Bed Rest/Nurse Assist (0 pts). Gait- Normal/Bed Rest/Wheelchair (0 pts) Mental Status- Oriented to own ability (0 pts). Total [place] Fall Scale indicates No Risk (0-24 pts). Assessment: 23:07 General: Appears in no apparent distress. Behavior is calm, cooperative, appropriate ll2 for age. Pain: Denies pain. Neuro: Level of Consciousness is awake, alert, obeys commands, Oriented to person, place, time, situation. Cardiovascular: Capillary refill < 3 seconds Patient's skin is warm and dry. Respiratory: Airway is patent Respiratory effort is even, unlabored, Respiratory pattern is regular, symmetrical. GI: No signs and/or symptoms were reported involving the gastrointestinal system. : No signs and/or symptoms were reported regarding the genitourinary system. EENT: No signs and/or symptoms were reported regarding the EENT system. Derm: Skin is intact, is healthy with good turgor, Skin is dry, Skin is pink, warm \\T\\ dry. Skin temperature is warm. Musculoskeletal: Circulation, motion, and sensation intact. Range of motion: intact in all extremities. 23:09 Pain: Pain does not radiate. Pain began gradually. ll2 09/16 00:37 Reassessment: No changes from previously documented assessment. Patient and/or family ll2 updated on plan of care and expected duration. Pain level reassessed. Patient is alert, oriented x 3, equal unlabored respirations, skin warm/dry/pink. Vital Signs: 09/15 23:06 BP 140 / 84; Pulse 83; Resp 18 S; Temp 98.5(TE); Pulse Ox 98% on R/A; Weight 92.99 kg jd3 (R); Height 5 ft. 9 in. (175.26 cm) (R); Pain 5/10; 09/16 00:35 BP 129 / 69; Pulse 68; Resp 14; Pulse Ox 98% on R/A; ll2 01:45 BP 132 / 69; Pulse 71; Resp 17; Pulse Ox 99% on R/A; ll2 09/15 23:06 Body Mass Index 30.27 (92.99 kg, 175.26 cm) jd3 ED Course: 09/15 22:55 Patient arrived in ED. as 22:56 Guy Roldan DO is Private Physician. as 23:03 Cali Logan MD is Attending Physician. tw4 23:05 Triage completed. jd3 23:07 Carin Mishra, RN is Primary Nurse. ll2 23:07 Arm band placed on. jd3 23:09 Patient has correct armband on for positive identification. Bed in low position. Call ll2 light in reach. Side rails up X 1. monitor worker on. Pulse ox on. NIBP on. 23:09 No provider procedures requiring assistance completed. Patient maintains SpO2 ll2 saturation greater than 95% on room air. 23:20 LFT's Sent. ll2 23:20 CBC with Diff Sent. ll2 23:20 Basic Metabolic Panel Sent. ll2 23:20 Inserted saline lock: 22 gauge in left wrist, using aseptic technique. Blood collected. ds4 Missed attempt(s): 20 gauge in right antecubital area. Bleeding controlled, band aid applied, catheter tip intact. 23:22 XRAY Chest (1 view) In Process Unspecified. EDMS 23:34 Urine Drug Screen Sent. ds4 09/16 02:11 Guy Roldan DO is Referral Physician. tw4 02:11 Donald Gaitan MD is Referral Physician. tw4 02:17 IV discontinued, intact, bleeding controlled, No redness/swelling at site. Pressure ll2 dressing applied. Administered Medications: 09/15 23:33 Drug: TORadol 30 mg Route: IVP; Site: left antecubital; ll2 10 02:05 Follow up: Response: No adverse reaction ll2 02:09 Drug: K-Lyte Effervescent Tablet 25 mEq Route: PO; ll2 02:09 Follow up: Response: No adverse reaction ll2 Outcome: 02:11 Discharge ordered by . tw4 02:17 Discharged to home ambulatory. ll2 02:17 Condition: stable 02:17 Discharge instructions given to patient, Instructed on discharge instructions, follow up and referral plans. Demonstrated understanding of instructions, follow-up care. 02:18 Patient left the ED. ll2 Signatures: Dispatcher [employer] EDMS Anaya Rios Donovan ds4 Godfrey Kaplan RN RN Cali Campuzano MD MD tw4 Carin Mishra, JASON RN ll2
[2020-09-16] MEDS ORDERED: POTASSIUM 25 MEQ EFFERV TAB ONE (02:20)
[2020-09-16 02:24] VITALS: TEMP 98.5
[2020-09-16 02:27] VITALS: BP 132/69; O2SAT 99
--- NOTE | 2020-09-16 07:12 | RAD REPORT ---
EXAM DESCRIPTION: [place] Single View09/15/2020 11:21 pm CLINICAL HISTORY: Chest pain COMPARISON: February 2020 FINDINGS: The lungs appear clear of acute infiltrate. The heart is normal size IMPRESSION: No acute abnormalities displayed
== END 2020-09-16 02:18 | disposition home or self-care (01) ==
LOC: ER 22:54
DX: R00.2 Palpitations (principal); R07.89 Other chest pain
CPT/HCPCS: 36415; 71045; 80048; 80076; 80307; 81003; 83735; 83880; 84484; 85025; 85610; 93005; 96374; 99285

== ENCOUNTER 2021-05-05 10:05 | Emergency (ER) | payer BC ==
--- OUTSIDE RECORDS SUMMARY | 2021-05-05 10:06 | XMS REPORT | Continuity of Care Document ---
:1995 Author Organization [facility] t Address [address] [place] [address] Care Team Providers Name Role Phone Nuvia [...] Department ID 2020-06-30 2020-06-30 Emergency Christina Ennis [facility] [id number] 15:40:00 20:45:00 Shell Medrano [id number] [place] [id number] [place] [id number] [phone] Results This patient has no known results.
--- NOTE | 2021-05-05 10:40 | ER ---
Nurse's Notes [facility] Name: Sudheer Duran Age: 26 yrs Sex: Male : 1995 Arrival Date: 05/05/2021 Time: 10:05 Bed Waiting Private MD: Guy Roldan Diagnosis: ED Course: 05/05 10:05 Patient arrived in ED. am2 10:05 Guy Roldan, DO is Private Physician. am2 Administered Medications: No medications were administered Outcome: 10:40 Patient left the ED. jd3 Signatures: Guerda Pierce am2 Godfrey Kaplan RN RN jd3
== END 2021-05-05 10:40 | disposition left against medical advice (07) ==
LOC: ER 10:05
DX: R69 Illness, unspecified (principal); Z53.21 Procedure and treatment not carried out due to patient leaving prior to being seen by health care provider